=== PATIENT | male | born 1955 | race Caucasian/White ===

== ENCOUNTER 2016-11-21 09:23 | Emergency (ER) | payer OTHER ==
[~2016-11-21] VITALS: Ht 182.9 cm; Wt 110.2 kg
[~2016-11-21 09:23] MED LIST: ADVIN25/60 INH; ALBUAER2 INH; OXYC-57 PO
[2016-11-21 09:30] VITALS: Ht 182.9 cm; Wt 110.2 kg
[2016-11-21] MEDS ORDERED: MoRPHine SULFATE 4 MG/ML 1 ML CARP\\VIAL IV STA (09:49)
[2016-11-21] MEDS ORDERED: IBUPROFEN 200 MG TAB PO STA (09:49)
[2016-11-21] MEDS ORDERED: ACETAMINOPHEN 325 MG TAB PO STA (09:49)
[2016-11-21] MEDS: SODIUM CHLORIDE 0.9% 1000ML 1,000 ML IV SCH ×3 (10:00→12:37)
[2016-11-21 10:35] LABS: BASO % 0.2 %; BASO ABS # 0.04 K/uL (0-0.2); COMPLETE YES; EOS % 1.5 %; HEMATOCRIT 45.1 % (42-52); IG% 0.4 %; LYMPH % 8.6 %; LYMPH ABS # 1.41 K/uL (1.2-3.4); MEAN CORPUSCULAR HGB CONC 34.4 g/dl (32-36); MEAN PLATELET VOLUME 11.2 fL (7.4-10.4); MONO % 9.6 %; NEUT % 79.7 %; PLATELET COUNT 201 K/uL (130-400); RED BLOOD COUNT 4.85 M/uL (4.7-6.1); WHITE BLOOD COUNT 16.31 K/uL (4.8-10.8)
--- NOTE | 2016-11-21 10:50 | EMERGENCY ROOM VISIT NOTE ---
History Report prepared by Lorenzo: Andreina Kirby Under the Supervision of: Dr. Frank Temple M.D. First contact with patient: 09:35 Chief Complaint: TESTICULAR PAIN Stated Complaint: SWELLING TO TESTICLES/PAIN Nursing Triage Summary: pt reports started with bilat testicular pain 1 day ago now today R side is very swollen and painful reports urinary freq and urgency, " I think I have a urinary tract inf has had these sx X several weeks History of Present Illness The patient is a 61 year old white male with a past medical history of penile fracture and inguinal hernia who presents to the ED with a cc of constant bilateral testicular pain beginning yesterday. The patient states that since yesterday the right side has become increasingly swollen and painful. Positive urinary frequency, malodorous urine, decreased urine output, and urinary urgency that he has had for 2 weeks. He complains of constipation. Negative fever, chills, back pain, trauma, recent travel. He does not take any blood thinners Source of History: patient Onset: yesterday Position: other (bilateral testicles) Timing: constant Associated Symptoms: + urinary symptoms, No fevers, No chills, No back pain Note: Positive constipation. Review of Systems See HPI for pertinent positives and negatives. A total of ten systems were reviewed and were otherwise negative. Past Medical & Surgical Medical Problems: (1) History of repair of inguinal hernia (2) No Known Active Medical Problems Family History No pertinent family history stated. Social History Smoking Status: Never Smoker Smokeless Tobacco Use: No Alcohol Use: occasionally Drug Use: none Marital Status: Housing Status: lives with family Occupation Status: employed Current/Historical Medications Scheduled Ciprofloxacin Hcl (Cipro), 1 TAB PO BID Scheduled PRN Tramadol (Ultram), 1 TAB PO BID PRN for Pain Allergies Coded Allergies: BEE STING (Unverified Allergy, Unknown, SWELLING, 11/21/16) Rofecoxib (Unverified Allergy, Unknown, RASH, 11/21/16) Physical Exam Vital Signs Date Time Temp Pulse Resp B/P (MAP) Pulse Ox O2 Delivery O2 Flow Rate FiO2 11/21/16 12:45 36.7 86 18 118/67 96 11/21/16 11:40 86 18 118/67 11/21/16 09:30 36.7 94 20 109/79 96 Room Air Physical Exam GENERAL: Awake, alert, well-appearing, mild discomfort HENT: Normocephalic, atraumatic. EYES: Normal conjunctiva. Sclera non-icteric. NECK: Supple. No nuchal rigidity. FROM. RESPIRATORY: CTAB, no rhonchi, wheezing, crackles CARDIAC: RRR, no MRG ABDOMEN: Soft, NTND, BS+ MSK: No chest wall TTP, no LE edema NEURO: GCS 15, CN 2-12 intact, moves all 4s on command SKIN: No rash or jaundice noted. : No penile pain, no discharge, mild left testicular tenderness to palpation, right side of scrotum enlarged tender to palpation, mild erythema no tenderness to palpation. No posterior scrotum or perineal tenderness to palpation or fluctuance. Medical Decision & Procedures ER Provider Diagnostic Interpretation: Radiology results as stated below per my review and radiologist interpretation: TESTICULAR ULTRASOUND FINDINGS: Right testis: 4.9 x 5.6 x 3.6 cm. The testis is asymmetrically enlarged in comparison to the left. The testis is heterogeneous and demonstrates marked increased color flow. There is also increased color flow within the body/tail of the epididymis. Therefore, this likely represents an epididymoorchitis. There is a 6 mm cyst within the epididymal head. Trace hydrocele. No definite masses identified. Left testis: 4.1 x 2.1 x 2.7 cm. This testis appears heterogeneous/atrophic. No definite masses. Increased color flow within the heterogeneous tail of the epididymis. Trace hydrocele. IMPRESSION: 1. Marked increased flow flow within the right testis which is enlarged in comparison to the left and heterogeneous. There is also thickening and increased color flow within the body/tail of the right epididymis. Therefore, this is consistent with an epididymoorchitis. 2. There is mild thickening and increased color flow within the tail of the left epididymis suggestive of an epididymitis. 3. Trace bilateral hydroceles. 4. The left testis appears atrophic in comparison to the right. 5. Both testes are heterogeneous. Electronically signed by: Arnulfo Ching M.D. 11/21/2016 11:36 AM Dictated Date/Time: 11/21/2016 11:32 AM Laboratory Results 11/21/16 10:24 Red Blood Count 4.85, Mean Corpuscular Volume 93.0, Mean Corpuscular Hemoglobin 32.0, Mean Corpuscular Hemoglobin Concent 34.4, Mean Platelet Volume 11.2, Neutrophils (%) (Auto) 79.7, Lymphocytes (%) (Auto) 8.6, Monocytes (%) (Auto) 9.6, Eosinophils (%) (Auto) 1.5, Basophils (%) (Auto) 0.2, Neutrophils # (Auto) 12.99, Lymphocytes # (Auto) 1.41, Monocytes # (Auto) 1.56, Eosinophils # (Auto) 0.25, Basophils # (Auto) 0.04 11/21/16 10:24 Test 11/21/16 10:24 11/21/16 11:30 White Blood Count 16.31 K/uL (4.8-10.8) Red Blood Count 4.85 M/uL (4.7-6.1) Hemoglobin 15.5 g/dL (14.0-18.0) Hematocrit 45.1 % (42-52) Mean Corpuscular Volume 93.0 fL (80-100) Mean Corpuscular Hemoglobin 32.0 pg (25-34) Mean Corpuscular Hemoglobin Concent 34.4 g/dl (32-36) Platelet Count 201 K/uL (130-400) Mean Platelet Volume 11.2 fL (7.4-10.4) Neutrophils (%) (Auto) 79.7 % Lymphocytes (%) (Auto) 8.6 % Monocytes (%) (Auto) 9.6 % Eosinophils (%) (Auto) 1.5 % Basophils (%) (Auto) 0.2 % Neutrophils # (Auto) 12.99 K/uL (1.4-6.5) Lymphocytes # (Auto) 1.41 K/uL (1.2-3.4) Monocytes # (Auto) 1.56 K/uL (0.11-0.59) Eosinophils # (Auto) 0.25 K/uL (0-0.5) Basophils # (Auto) 0.04 K/uL (0-0.2) RDW Standard Deviation 43.1 fL (36.4-46.3) RDW Coefficient of Variation 12.6 % (11.5-14.5) Immature Granulocyte % (Auto) 0.4 % Immature Granulocyte # (Auto) 0.06 K/uL (0.00-0.02) Anion Gap 5.0 mmol/L (3-11) Est Creatinine Clear Calc Drug Dose 102.0 ml/min Estimated GFR () 95.1 Estimated GFR (Non- 82.0 BUN/Creatinine Ratio 13.9 (10-20) Calcium Level 9.2 mg/dl (8.5-10.1) Total Creatine Kinase 58 U/L (39-308) Urine Color DK YELLOW Urine Appearance CLOUDY (CLEAR) Urine pH 5.5 (4.5-7.5) Urine Specific [place] 1.025 (1.000-1.030) Urine Protein 1+ (NEG) Urine Glucose (UA) NEG (NEG) Urine Ketones NEG (NEG) Urine Occult Blood 1+ (NEG) Urine Nitrite NEG (NEG) Urine Bilirubin NEG (NEG) Urine Urobilinogen NEG (NEG) Urine Leukocyte Esterase MODERATE (NEG) Urine WBC (Auto) >30 /hpf (0-5) Urine RBC (Auto) 5-10 /hpf (0-4) Urine Hyaline Casts (Auto) >30 /lpf (0-5) Urine Epithelial Cells (Auto) 0-5 /lpf (0-5) Urine Bacteria (Auto) 1+ (NEG) Urine Pathogenic Casts 1-5 WBC CASTS /lpf (0) Laboratory results reviewed by me Medications Administered Medications (Trade) Dose Ordered Sig/Lucas Route Start Time Stop Time Status Last Admin Dose Admin Morphine Sulfate (MoRPHine SULFATE INJ) 4 mg NOW STAT IV 11/21/16 09:49 11/21/16 09:53 DC 11/21/16 09:49 4 MG Ibuprofen (Advil Tab) 400 mg NOW STAT PO 11/21/16 09:49 11/21/16 09:53 DC 11/21/16 10:32 200 MG Acetaminophen (Tylenol Tab) 650 mg NOW STAT PO 11/21/16 09:49 11/21/16 09:53 DC 11/21/16 10:31 650 MG Sodium Chloride 1,000 ml @ 999 mls/hr Q1H1M IV 11/21/16 10:00 11/21/16 13:13 DC 11/21/16 12:37 999 MLS/HR Ciprofloxacin (Cipro Tab) 500 mg NOW STAT PO 11/21/16 12:21 11/21/16 12:23 DC 11/21/16 12:37 500 MG Acetaminophen/ Hydrocodone Bitart ([place] 5/325 Tab) 1 tab ONE STAT PO 11/21/16 12:21 11/21/16 12:23 DC 11/21/16 12:38 1 TAB ED Course 0935: The patient was evaluated in room B2. A complete history and physical exam was performed. 1240: I reevaluated and updated the patient on his results. 1251: I reevaluated the patient. Discussed results and discharge instructions: He verbalized understanding and agreement. The patient is ready for discharge. Medical Decision Differential diagnosis includes orchitis, UTI, epididymitis, STI, hydrocele, torsion. The patient is a 61 year old white male with a past medical history of penile fracture and inguinal hernia who presents to the ED with a cc of constant bilateral testicular pain beginning yesterday. Patient did have a mild white count of 16, normal kidney function and a negative UA for infection. Patient's ultrasound was completed which did show a likely orchitis and epididymitis with her trace hydrocele. Patient was given ciprofloxacin as well as additional pain medication. Patient was told informed of all findings. She was told return if he has any worsening or persistent symptoms not amenable to at-home treatment. Patient was given strict follow-up , to start comfortable cautions. Patient agreed with plan of care was discharged home. Medication Reconcilliation Current Medication List: was personally reviewed by me Blood Pressure Screening Patient's blood pressure: Normal blood pressure Blood pressure disposition: Did not require urgent referral Impression Primary Impression: Epididymitis Additional Impressions: Orchitis Hydrocele Scribe Attestation The scribe's documentation has been prepared under my direction and personally reviewed by me in its entirety. I confirm that the note above accurately reflects all work, treatment, procedures, and medical decision making performed by me. Departure Information Dispostion Home / Self-Care Prescriptions Ciprofloxacin Hcl (CIPRO) 500 Mg Tab 1 TAB PO BID for 7 Days, #14 TAB Prov: Frank Temple M.D. 11/21/16 Tramadol (Ultram) 50 Mg Tab 1 TAB PO BID Y for Pain for 30 Days, #30 TAB Prov: Frank Temple M.D. 11/21/16 Referrals Rene Sosa, D.O. (PCP) Forms HOME CARE DOCUMENTATION FORM, IMPORTANT VISIT INFORMATION, WORK / SCHOOL INSTRUCTIONS Patient Instructions Epididymitis Orchitis, My [facility] Additional Instructions Please take her medications as prescribed. If you worsening or persistent symptoms please return to the emergency department or call your primary care physician's office. Please continue to apply ice as you able and elevate the scrotum to help relieve pain. Please continue take the full course of her antibiotics even if you feel better. He may take Tylenol up to 1000 mg every 6 hours and Motrin 800 mg every 6 hours as needed for pain. Problem Qualifiers
[2016-11-21 10:53] LABS: BUN/CREATININE RATIO 13.9 (10-20); CALCIUM 9.2 mg/dl (8.5-10.1); POTASSIUM 4.2 mmol/L (3.5-5.1)
--- NOTE | 2016-11-21 11:37 | DIAGNOSTIC IMAGING REPORT ---
TESTICULAR ULTRASOUND HISTORY: bilateral testicular pain, R>L w/ significant R sided TTP COMPARISON: None. FINDINGS: Right testis: 4.9 x 5.6 x 3.6 cm. The testis is asymmetrically enlarged in comparison to the left. The testis is heterogeneous and demonstrates marked increased color flow. There is also increased color flow within the body/tail of the epididymis. Therefore, this likely represents an epididymoorchitis. There is a 6 mm cyst within the epididymal head. Trace hydrocele. No definite masses identified. Left testis: 4.1 x 2.1 x 2.7 cm. This testis appears heterogeneous/atrophic. No definite masses. Increased color flow within the heterogeneous tail of the epididymis. Trace hydrocele. IMPRESSION: 1. Marked increased flow flow within the right testis which is enlarged in comparison to the left and heterogeneous. There is also thickening and increased color flow within the body/tail of the right epididymis. Therefore, this is consistent with an epididymoorchitis. 2. There is mild thickening and increased color flow within the tail of the left epididymis suggestive of an epididymitis. 3. Trace bilateral hydroceles. 4. The left testis appears atrophic in comparison to the right. 5. Both testes are heterogeneous. Electronically signed by: Arnulfo Ching M.D. 11/21/2016 11:36 AM Dictated Date/Time: 11/21/2016 11:32 AM
[2016-11-21 11:53] LABS: URINE APPEARANCE CLOUDY (CLEAR); URINE BILIRUBIN NEG (NEG); URINE COLOR DK YELLOW; URINE EPITHELIAL CELL AUTO 0-5 /lpf (0-5); URINE NITRITE NEG (NEG); URINE PH 5.5 (4.5-7.5); URINE SPECIFIC GRAVITY 1.025 (1.000-1.030); UROBILINOGEN NEG (NEG); ZZUR CULT IF INDIC CLEAN CATCH YES
[2016-11-21 11:58] LABS: MANUAL MICROSCOPIC REQUIRED? NO; REVIEW REQ? YES
[2016-11-21 12:07] LABS: URINE PATH CASTS 1-5 WBC CASTS /lpf (0)
[2016-11-21] MEDS ORDERED: HYDROCODONE/ACETAMOPHEN 5/325MG TAB PO STA (12:21)
[2016-11-21] MEDS ORDERED: CIPROFLOXACIN 500 MG TAB PO STA (12:21)
[2016-11-21] MEDS ORDERED: CIPR-255 PO (12:31)
[2016-11-21] MEDS ORDERED: TRAM-10 PO (12:31)
[2016-11-21 12:45] VITALS: BP 118/67; PULSE 86; TEMP 36.7; O2SAT 96
[2016-11-24] MEDS ORDERED: ERTA1INJ IV (22:36)
[2016-11-25] MEDS ORDERED: FLM4 PO (17:03)
[2016-11-25] MEDS ORDERED: HYDR-3419 PO (17:03)
== END 2016-11-21 12:46 | disposition home or self-care (01) ==
LOC: C.EDB 09:25
DX: N45.1 Epididymitis (principal); N45.2 Orchitis; N43.3 Hydrocele, unspecified

== ENCOUNTER 2016-11-23 09:35 | Inpatient (IN) | payer OTHER ==
[~2016-11-23] VITALS: Ht 182.9 cm; Wt 110.9 kg
[~2016-11-23 09:35] MED LIST changes: -ADVIN25/60 INH; -ALBUAER2 INH; +CIPR-255 PO; -OXYC-57 PO; +TRAM-10 PO
[2016-11-23] MEDS ORDERED: PIPERACILLIN/TAZOBACTAM 4.5 GM/100ML D5W IV STA (10:07)
[2016-11-23] MEDS ORDERED: SODIUM CHLORIDE 0.9% 1000ML 2,000 ML IV STA (10:07)
[2016-11-23] MEDS ORDERED: CIPR-255 PO (10:12)
[2016-11-23] MEDS ORDERED: IBUP-1050 PO (10:12)
[2016-11-23] MEDS ORDERED: TRAM-10 PO (10:12)
--- NOTE | 2016-11-23 10:33 | DIAGNOSTIC IMAGING REPORT ---
CHEST ONE VIEW PORTABLE CLINICAL HISTORY: Fever. COMPARISON STUDY: Chest CT March 27, 2015. FINDINGS: Lung volumes are normal. There is no pneumothorax or pleural effusion. Pulmonary vascularity is normal. No consolidation is identified. Cardiomediastinal silhouette is normal. IMPRESSION: No acute cardiopulmonary findings. Electronically signed by: Jaylen Coronel M.D. 11/23/2016 10:31 AM Dictated Date/Time: 11/23/2016 10:31 AM
[2016-11-23 10:40] LABS: URINE APPEARANCE CLOUDY (CLEAR); URINE BILIRUBIN NEG (NEG); URINE COLOR YELLOW; URINE NITRITE NEG (NEG); URINE SPECIFIC GRAVITY 1.015 (1.000-1.030); UROBILINOGEN NEG (NEG); ZZUR CULT IF INDIC CLEAN CATCH YES
[2016-11-23 10:41] LABS: MANUAL MICROSCOPIC REQUIRED? NO; REVIEW REQ? NO
[2016-11-23 11:36] LABS: BASO % 0.5 %; BASO ABS # 0.03 K/uL (0-0.2); COMPLETE YES; EOS % 6.5 %; HEMATOCRIT 44.6 % (42-52); IG% 0.5 %; LYMPH % 18.8 %; LYMPH ABS # 1.06 K/uL (1.2-3.4); MEAN CELL VOLUME 93.1 fL (80-100); MEAN CORPUSCULAR HEMOGLOBIN 32.2 pg (25-34); MEAN CORPUSCULAR HGB CONC 34.5 g/dl (32-36); MEAN PLATELET VOLUME 11.5 fL (7.4-10.4); MONO % 13.6 %; NEUT % 60.1 %; PLATELET COUNT 212 K/uL (130-400); RED BLOOD COUNT 4.79 M/uL (4.7-6.1); WHITE BLOOD COUNT 5.65 K/uL (4.8-10.8)
[2016-11-23 11:44] LABS: PROTHROMBIN TIME (PATIENT) 11.1 SECONDS (9.0-12.0)
[2016-11-23 11:54] LABS: BLOOD UREA NITROGEN 10 mg/dl (7-18); CALCIUM 8.5 mg/dl (8.5-10.1); CARBON DIOXIDE 29 mmol/L (21-32); CHLORIDE 102 mmol/L (98-107); CREATININE 0.87 mg/dl (0.60-1.40); GLUCOSE 89 mg/dl (70-99); MAGNESIUM 2.4 mg/dl (1.8-2.4); POTASSIUM 3.9 mmol/L (3.5-5.1); SODIUM 137 mmol/L (136-145)
--- NOTE | 2016-11-23 11:58 | DIAGNOSTIC IMAGING REPORT ---
EXAMINATION: RENAL ULTRASOUND CLINICAL HISTORY: Right flank pain. Urinary tract infection. COMPARISON STUDY: CT scan dated 07/21/2015 FINDINGS: The right kidney measures 11.4 cm. The left kidney measures 11.8 cm. There is no evidence of hydronephrosis. There is a probable 1 cm lower pole left renal calculus. There is a left mid pole renal scar. No bladder abnormalities are visualized. Bilateral ureteral jets were visualized. IMPRESSION : 1. No evidence of hydronephrosis 2. 1 cm lower pole left renal calculus 3. No perinephric fluid collections identified Electronically signed by: Tc Temple M.D. 11/23/2016 11:56 AM Dictated Date/Time: 11/23/2016 11:55 AM
[2016-11-23 12:00] LABS: ALKALINE PHOSPHATASE 78 U/L (45-117); ALT/SGPT 33 U/L (12-78); AST/SGOT 24 U/L (15-37); CKMB/CK RATIO 2.4 (0-3.0)
[2016-11-23 12:23] LABS: ISTAT CREATININE 0.9 mg/dl (0.6-1.3); ISTAT HEMOGLOBIN 15.6 g/dl (14.0-18.0); ISTAT IONIZED CALCIUM 1.15 mmol/l (1.12-1.32)
[2016-11-23 13:38] VITALS: O2SAT 97; Ht 182.9 cm; Wt 110.9 kg
--- NOTE | 2016-11-23 14:16 | History and Physical ---
History & Physical Date & Time of Service: Nov 23, 2016 at 14:03 Chief Complaint: Swollen Testicles-Sent By Office Primary Care Physician: Rene Sosa D.O. History of Present Illness This is a 61-year-old male who was originally presented to the the emergency room on Tuesday11/21/2016 for 1 day of pain and swelling of testicle with accompanied symptoms of urinary retention. Patient had testicular ultrasound on 11/21/2016 with following findings: Marked increased flow flow within the right testis which is enlarged in comparison to the left and heterogeneous consistent with an epididymoorchitis. Urine cultures were drawn and patient given oral ciprofloxacin. Urine cultures returned today on 11/23/2016 with ESBL ecoli sensitive to amikacin, ertapenem, imipenem, nitrofurantoin, piperacillin and tazobactam (Zosyn). Patient was recalled to the in the ED on 11/23/2016. In the ED patient had renal ultrasound without acute findings and given 4.5 g of Zosyn IV. Patient seen and examined by hospitalist medicine physician. Not in acute distress. Reports that since he has been on the outpatient Ciprofloxacin therapy , he feels that has urinary stream has improved but continues to have swelling and pain particularly at right side of scrotal sac/ right testicle Past Medical/Surgical History Medical Problems: (1) History of repair of inguinal hernia Status: Resolved (2) No Known Active Medical Problems Status: Chronic Family History Patient reports no known family medical history. Social History Smoking Status: Former Smoker (quite 10 years ago) Smokeless Tobacco Use: No Alcohol Use: 12 beers in a week Drug Use: none, marijuana (reports marijuana use but not in recent weeks) Marital Status: Housing status: lives with significant other Occupational Status: employed Immunizations History of Influenza Vaccine: Unknown History of Tetanus Vaccine?: Unknown History of Pneumococcal: Unknown History of Hepatitis B Vaccine: Unknown Multi-Drug Resistant Organisms History of MDRO: No Allergies Coded Allergies: Rofecoxib (Verified Allergy, Mild, RASH, 11/23/16) BEE STING (Verified Allergy, Unknown, SWELLING, 11/23/16) Home Medications Scheduled Ciprofloxacin Hcl (Cipro), 500 MG PO BID Scheduled PRN Ibuprofen (Advil), 400-600 MG PO Q6H PRN for Pain Tramadol (Ultram), 50 MG PO BID PRN for Pain Review of Systems Constitutional: + chills, No fever, No weight loss, No weakness, No fatigue Eyes: No worsening of vision, No redness, No discharge ENT: No hearing loss, No sore throat Respiratory: No cough, No sputum, No shortness of breath, No dyspnea on exertion, No hemoptysis Cardiovascular: No chest pain, No orthopnea, No edema Abdomen: No pain, No diarrhea, No constipation Genitourinary - Male: + hematuria, + urinary hesitancy, + urinary retention, No dysuria, No urinary incontinence Neurologic: No numbness/tingling, No vertigo Psychiatric: No insomnia Endocrine: No fatigue Hematologic / Lymphatic: No swollen lymph nodes Allergic / Immunologic: No food allergies, No frequent infections Physical Exam Vital Signs Date Time Temp Pulse Resp B/P (MAP) Pulse Ox O2 Delivery O2 Flow Rate FiO2 11/23/16 13:46 75 142/89 98 Room Air 11/23/16 13:38 97 Room Air 11/23/16 11:16 71 120/92 97 Room Air 11/23/16 09:37 36.7 98 16 121/89 94 Room Air General Appearance: no apparent distress, + obese Head: normocephalic, atraumatic Eyes: normal inspection, PERRL, EOMI, sclerae normal ENT: hearing grossly normal, pharynx normal Neck: supple, no adenopathy, no JVD, trachea midline Respiratory/Chest: chest non-tender, lungs clear, normal breath sounds, no respiratory distress, no accessory muscle use Cardiovascular: regular rate, rhythm, no edema, normal peripheral pulses Abdomen/GI: normal bowel sounds, non tender, soft Genitourinary - Male: no genital lesions, no urethral discharge, + testicular tenderness (right testicle more enlarged compared to left, erythema of scrotal sac) Back: normal inspection, no CVA tenderness, no muscle spasm, normal range of motion Extremities/Musculoskelatal: normal inspection, no calf tenderness, no pedal edema Neurologic/Psych: no motor/sensory deficits, alert, normal mood/affect, oriented x 3 Skin: + rash (erythema of scrotal sac) Lymphatic: no adenopathy Diagnostics Laboratory Results Results Past 24 Hours Test 11/23/16 10:25 11/23/16 10:45 11/23/16 11:12 8/8/17 11:17 Range/Units Urine Color YELLOW Urine Appearance CLOUDY CLEAR Urine pH 6.0 4.5-7.5 Urine Specific [place] 1.015 1.000-1.030 Urine Protein NEG NEG Urine Glucose (UA) NEG NEG Urine Ketones NEG NEG Urine Occult Blood 2+ NEG Urine Nitrite NEG NEG Urine Bilirubin NEG NEG Urine Urobilinogen NEG NEG Urine Leukocyte Esterase LARGE NEG Urine WBC (Auto) >30 0-5 /hpf Urine RBC (Auto) 10-30 0-4 /hpf Urine Hyaline Casts (Auto) 1-5 0-5 /lpf Urine Epithelial Cells (Auto) 5-10 0-5 /lpf Urine Bacteria (Auto) NEG NEG White Blood Count 5.65 4.8-10.8 K/uL Red Blood Count 4.79 4.7-6.1 M/uL Hemoglobin 15.4 14.0-18.0 g/dL Hematocrit 44.6 42-52 % Mean Corpuscular Volume 93.1 80-100 fL Mean Corpuscular Hemoglobin 32.2 25-34 pg Mean Corpuscular Hemoglobin Concent 34.5 32-36 g/dl Platelet Count 212 130-400 K/uL Mean Platelet Volume 11.5 7.4-10.4 fL Neutrophils (%) (Auto) 60.1 % Lymphocytes (%) (Auto) 18.8 % Monocytes (%) (Auto) 13.6 % Eosinophils (%) (Auto) 6.5 % Basophils (%) (Auto) 0.5 % Neutrophils # (Auto) 3.39 1.4-6.5 K/uL Lymphocytes # (Auto) 1.06 1.2-3.4 K/uL Monocytes # (Auto) 0.77 0.11-0.59 K/uL Eosinophils # (Auto) 0.37 0-0.5 K/uL Basophils # (Auto) 0.03 0-0.2 K/uL RDW Standard Deviation 43.1 36.4-46.3 fL RDW Coefficient of Variation 12.7 11.5-14.5 % Immature Granulocyte % (Auto) 0.5 % Immature Granulocyte # (Auto) 0.03 0.00-0.02 K/uL Prothrombin Time 11.1 9.0-12.0 SECONDS Prothromb Time International Ratio 1.0 0.9-1.1 Sodium Level 137 136-145 mmol/L Potassium Level 3.9 3.5-5.1 mmol/L Chloride Level 102 98-107 mmol/L Carbon Dioxide Level 29 21-32 mmol/L Anion Gap 6.0 14.0 16-25 mmol/L Blood Urea Nitrogen 10 7-18 mg/dl Creatinine 0.87 0.60-1.40 mg/dl Est Creatinine Clear Calc Drug Dose 117.6 ml/min Estimated GFR () 109.5 Estimated GFR (Non- 94.5 BUN/Creatinine Ratio 11.0 10-20 Random Glucose 89 70-99 mg/dl Calcium Level 8.5 8.5-10.1 mg/dl Magnesium Level 2.4 1.8-2.4 mg/dl Total Bilirubin 0.6 0.2-1 mg/dl Direct Bilirubin 0.2 0-0.2 mg/dl Aspartate Amino Transf (AST/SGOT) 24 15-37 U/L Alanine Aminotransferase (ALT/SGPT) 33 12-78 U/L Alkaline Phosphatase 78 45-117 U/L Total Creatine Kinase 49 39-308 U/L Creatine Kinase MB 1.2 0.5-3.6 ng/ml Creatine Kinase MB Ratio 2.4 0-3.0 Troponin I < 0.015 0-0.045 ng/ml Total Protein 6.9 6.4-8.2 gm/dl Albumin 3.1 3.4-5.0 gm/dl Bedside Lactic Acid Venous 1.12 0.90-1.70 mmol/L Bedside Hemoglobin 15.6 14.0-18.0 g/dl Bedside Hematocrit 46 42-52 % Bedside Sodium 136 135-144 mEq/L Bedside Potassium 3.9 3.3-5.0 mEq/L Bedside Chloride 100 101-112 mEq/L Bedside Total CO2 27 24-31 mEq/l Bedside Blood Urea Nitrogen 10 7-18 mg/dl Bedside Creatinine 0.9 0.6-1.3 mg/dl Bedside Glucose (other) 93 70-99 mg/dl Bedside Ionized Calcium (Keisha) 1.15 1.12-1.32 mmol/l Microbiology Results 11/23/16 Blood Culture, Received Pending 11/23/16 Blood Culture, Received Pending 11/23/16 Urine Culture, Received Pending Diagnostic Radiology EXAMINATION: RENAL ULTRASOUND, performed on 11/23/2016 CLINICAL HISTORY: Right flank pain. Urinary tract infection. COMPARISON STUDY: CT scan dated 07/21/2015 FINDINGS: The right kidney measures 11.4 cm. The left kidney measures 11.8 cm. There is no evidence of hydronephrosis. There is a probable 1 cm lower pole left renal calculus. There is a left mid pole renal scar. No bladder abnormalities are visualized. Bilateral ureteral jets were visualized. IMPRESSION : 1. No evidence of hydronephrosis 2. 1 cm lower pole left renal calculus 3. No perinephric fluid collections identified Electronically signed by: Tc Temple M.D. 11/23/2016 11:56 AM Dictated Date/Time: 11/23/2016 11:55 AM TESTICULAR ULTRASOUND, performed on 11/21/2016 HISTORY: bilateral testicular pain, R>L w/ significant R sided TTP COMPARISON: None. FINDINGS: Right testis: 4.9 x 5.6 x 3.6 cm. The testis is asymmetrically enlarged in comparison to the left. The testis is heterogeneous and demonstrates marked increased color flow. There is also increased color flow within the body/tail of the epididymis. Therefore, this likely represents an epididymoorchitis. There is a 6 mm cyst within the epididymal head. Trace hydrocele. No definite masses identified. Left testis: 4.1 x 2.1 x 2.7 cm. This testis appears heterogeneous/atrophic. No definite masses. Increased color flow within the heterogeneous tail of the epididymis. Trace hydrocele. IMPRESSION: 1. Marked increased flow flow within the right testis which is enlarged in comparison to the left and heterogeneous. There is also thickening and increased color flow within the body/tail of the right epididymis. Therefore, this is consistent with an epididymoorchitis. 2. There is mild thickening and increased color flow within the tail of the left epididymis suggestive of an epididymitis. 3. Trace bilateral hydroceles. 4. The left testis appears atrophic in comparison to the right. 5. Both testes are heterogeneous. Electronically signed by: Arnulfo Ching M.D. 11/21/2016 11:36 AM Dictated Date/Time: 11/21/2016 11:32 AM CXR normal Normal EKG Impression Assessment and Plan 61-year-old male diagnosed with epididymoorchitis on 11/21/2016 and subsequent urine cultures from 11/21/2016 found to be growing ESBL ecoli sensitive to amikacin, ertapenem, imipenem, nitrofurantoin, piperacillin and tazobactam ( Zosyn). Since being recalled to the ED for IV antibiotic treatment, patient had been empirically treated with oral ciprofloxacin with mild improvements of symptoms with improvement in urinary stream has improved but continues to have swelling and pain particularly at right side of scrotal sac/ right testicle. Patient had negative renal ultrasound and started on Zosyn in the ED 4.5 gram IV x 1. Patient seen and examined by hospitalist medicine provider and admitted to medicine service. ESBL UTI -contact precautions for ESBL -received Zosy 4.5 gram IV x 1 in the ED -scheduled Ertapenem 1 gram IV for this evening -awaiting ID consult recommendation on antibiotics course and duration Epididymoorchitis -likely caused by ESBL infection -screen for gonorrhea and chlamydia -screen for HIV -repeat testicular ultrasound ordered to rule out testicular torsion or other complications from infection which requires surgical evaluation, awaiting urology service recommendations DVT prophylaxis -Lovenox 40 mg daily Smoking Cessation counseling Level of Care Med/Surg Advanced Directives Existing Advance Directive: No Existing Living Will: No Existing Power of Interpretative Dancer: No Existing Health Care Proxy: No (patient reports that his Barb is his spouse and health care decision maker) VTE Prophylaxis VTE Risk Assessment Done? Y/N: Yes Risk Level: Moderate Given or contraindicated: Enoxaparin (Lovenox)SQ Social Service Consult None Apply
[2016-11-23 14:38] VITALS: BP 118/83; PULSE 69; TEMP 36.5; O2SAT 98
--- NOTE | 2016-11-23 14:59 | EMERGENCY ROOM VISIT NOTE ---
History Report prepared by Lorenzo: Cayla Carbajal Under the Supervision of: Dr. Nehemias Grullno D.O. First contact with patient: 09:52 Chief Complaint: TESTICULAR PAIN Stated Complaint: SWOLLEN TESTICLES-SENT BY OFFICE Nursing Triage Summary: Right sided testicular pain. States he was here last week for same and received ABX and was called and told to come back in for IV ABX. History of Present Illness The patient's blood cultured was reviewed this morning and the patient was found to have a antoine resistant UTI and was called back to the emergency department. The patient is a 61 year old male who presents to the Emergency Room with complaints of swollen testicles beginning 2 days ago. The patient reports having burning with urination several weeks ago and thought that he had a UTI. The patient states that 4 days ago he felt achy and 3 days ago he was in pain and decided to come to the emergency department the following day because he had swollen testicles. He reports that his testicles are still swollen and that he thinks he saw blood in his penile discharge. He also complains of having a fever and lower right back pain which began yesterday. He states that he is sexually active and that his has a history of a staph infection. Pt denies headache, change in vision, chest pain, shortness of breath, nausea, vomiting, diarrhea, and melena. Source of History: patient Onset: 2 days ago Position: other (testicles) Quality: other (swelling) Associated Symptoms: + fevers, + back pain, No headache, No chest pain, No SOB, No nausea, No vomiting, No diarrhea Review of Systems See HPI for pertinent positives & negatives. A total of 10 systems reviewed and were otherwise negative. Past Medical & Surgical Medical Problems: (1) History of repair of inguinal hernia (2) No Known Active Medical Problems Family History No pertinent family history stated. Social History Smoking Status: Former Smoker Alcohol Use: occasionally Drug Use: none Marital Status: Housing Status: lives with family Occupation Status: employed Current/Historical Medications Scheduled Ciprofloxacin Hcl (Cipro), 500 MG PO BID Scheduled PRN Ibuprofen (Advil), 400-600 MG PO Q6H PRN for Pain Tramadol (Ultram), 50 MG PO BID PRN for Pain Allergies Coded Allergies: Rofecoxib (Verified Allergy, Mild, RASH, 11/23/16) BEE STING (Verified Allergy, Unknown, SWELLING, 11/23/16) Physical Exam Vital Signs Date Time Temp Pulse Resp B/P (MAP) Pulse Ox O2 Delivery O2 Flow Rate FiO2 11/23/16 11:16 71 120/92 97 Room Air 11/23/16 09:37 36.7 98 16 121/89 94 Room Air Physical Exam GENERAL: Sitting upright in bed, disheveled, no acute distress EYE EXAM: normal conjunctiva OROPHARYNX: no exudate, no erythema, lips, buccal mucosa, and tongue normal and mucous membranes are moist NECK: supple, no nuchal rigidity, no adenopathy, non-tender LUNGS: Clear to auscultation. Normal chest wall mechanics HEART: no murmurs, S1 normal and S2 normal ABDOMEN: abdomen soft, non-tender, normo-active bowel sounds, no masses, no rebound or guarding. BACK: Back is symmetrical on inspection and there is no deformity, no midline tenderness, no CVA tenderness. SKIN: no rashes and no bruising : Enlarged right testicle with erythema and tenderness to palpation. UPPER EXTREMITIES: upper extremities are grossly normal. LOWER EXTREMITIES: No pitting edema. NEURO EXAM: Normal sensorium, cranial nerves II-XII intact, normal speech, no weakness of arms, no weakness of legs. Medical Decision & Procedures ER Provider Diagnostic Interpretation: XRAY: A 1 view study was reviewed, no fracture was seen. CHEST ONE VIEW PORTABLE CLINICAL HISTORY: Fever. COMPARISON STUDY: Chest CT March 27, 2015. FINDINGS: Lung volumes are normal. There is no pneumothorax or pleural effusion. Pulmonary vascularity is normal. No consolidation is identified. Cardiomediastinal silhouette is normal. IMPRESSION: No acute cardiopulmonary findings. Electronically signed by: Jaylen Coronel M.D. 11/23/2016 10:31 AM Dictated Date/Time: 11/23/2016 10:31 AM Radiology results as stated below per my review and the radiologist's interpretation: EXAMINATION: RENAL ULTRASOUND CLINICAL HISTORY: Right flank pain. Urinary tract infection. COMPARISON STUDY: CT scan dated 07/21/2015 FINDINGS: The right kidney measures 11.4 cm. The left kidney measures 11.8 cm. There is no evidence of hydronephrosis. There is a probable 1 cm lower pole left renal calculus. There is a left mid pole renal scar. No bladder abnormalities are visualized. Bilateral ureteral jets were visualized. IMPRESSION : 1. No evidence of hydronephrosis 2. 1 cm lower pole left renal calculus 3. No perinephric fluid collections identified Electronically signed by: Tc Temple M.D. 11/23/2016 11:56 AM Dictated Date/Time: 11/23/2016 11:55 AM Laboratory Results 11/23/16 10:45 Red Blood Count 4.79, Mean Corpuscular Volume 93.1, Mean Corpuscular Hemoglobin 32.2, Mean Corpuscular Hemoglobin Concent 34.5, Mean Platelet Volume 11.5, Neutrophils (%) (Auto) 60.1, Lymphocytes (%) (Auto) 18.8, Monocytes (%) (Auto) 13.6, Eosinophils (%) (Auto) 6.5, Basophils (%) (Auto) 0.5, Neutrophils # (Auto ) 3.39, Lymphocytes # (Auto) 1.06, Monocytes # (Auto) 0.77, Eosinophils # (Auto ) 0.37, Basophils # (Auto) 0.03 11/23/16 10:45 Test 11/23/16 10:25 11/23/16 10:45 11/23/16 11:12 11/23/16 11:17 Urine Color YELLOW Urine Appearance CLOUDY (CLEAR) Urine pH 6.0 (4.5-7.5) Urine Specific Mcdavid 1.015 (1.000-1.030) Urine Protein NEG (NEG) Urine Glucose (UA) NEG (NEG) Urine Ketones NEG (NEG) Urine Occult Blood 2+ (NEG) Urine Nitrite NEG (NEG) Urine Bilirubin NEG (NEG) Urine Urobilinogen NEG (NEG) Urine Leukocyte Esterase LARGE (NEG) Urine WBC (Auto) >30 /hpf (0-5) Urine RBC (Auto) 10-30 /hpf (0-4) Urine Hyaline Casts (Auto) 1-5 /lpf (0-5) Urine Epithelial Cells (Auto) 5-10 /lpf (0-5) Urine Bacteria (Auto) NEG (NEG) White Blood Count 5.65 K/uL (4.8-10.8) Red Blood Count 4.79 M/uL (4.7-6.1) Hemoglobin 15.4 g/dL (14.0-18.0) Hematocrit 44.6 % (42-52) Mean Corpuscular Volume 93.1 fL (80-100) Mean Corpuscular Hemoglobin 32.2 pg (25-34) Mean Corpuscular Hemoglobin Concent 34.5 g/dl (32-36) Platelet Count 212 K/uL (130-400) Mean Platelet Volume 11.5 fL (7.4-10.4) Neutrophils (%) (Auto) 60.1 % Lymphocytes (%) (Auto) 18.8 % Monocytes (%) (Auto) 13.6 % Eosinophils (%) (Auto) 6.5 % Basophils (%) (Auto) 0.5 % Neutrophils # (Auto) 3.39 K/uL (1.4-6.5) Lymphocytes # (Auto) 1.06 K/uL (1.2-3.4) Monocytes # (Auto) 0.77 K/uL (0.11-0.59) Eosinophils # (Auto) 0.37 K/uL (0-0.5) Basophils # (Auto) 0.03 K/uL (0-0.2) RDW Standard Deviation 43.1 fL (36.4-46.3) RDW Coefficient of Variation 12.7 % (11.5-14.5) Immature Granulocyte % (Auto) 0.5 % Immature Granulocyte # (Auto) 0.03 K/uL (0.00-0.02) Prothrombin Time 11.1 SECONDS (9.0-12.0) Prothromb Time International Ratio 1.0 (0.9-1.1) Est Creatinine Clear Calc Drug Dose 117.6 ml/min Estimated GFR () 109.5 Estimated GFR (Non- 94.5 BUN/Creatinine Ratio 11.0 (10-20) Calcium Level 8.5 mg/dl (8.5-10.1) Magnesium Level 2.4 mg/dl (1.8-2.4) Total Bilirubin 0.6 mg/dl (0.2-1) Direct Bilirubin 0.2 mg/dl (0-0.2) Aspartate Amino Transf (AST/SGOT) 24 U/L (15-37) Alanine Aminotransferase (ALT/SGPT) 33 U/L (12-78) Alkaline Phosphatase 78 U/L (45-117) Total Creatine Kinase 49 U/L (39-308) Creatine Kinase MB 1.2 ng/ml (0.5-3.6) Creatine Kinase MB Ratio 2.4 (0-3.0) Troponin I < 0.015 ng/ml (0-0.045) Total Protein 6.9 gm/dl (6.4-8.2) Albumin 3.1 gm/dl (3.4-5.0) Bedside Lactic Acid Venous 1.12 mmol/L (0.90-1.70) Bedside Hemoglobin 15.6 g/dl (14.0-18.0) Bedside Hematocrit 46 % (42-52) Bedside Sodium 136 mEq/L (135-144) Bedside Potassium 3.9 mEq/L (3.3-5.0) Bedside Chloride 100 mEq/L (101-112) Bedside Total CO2 27 mEq/l (24-31) Anion Gap 14.0 mmol/L (16-25) Bedside Blood Urea Nitrogen 10 mg/dl (7-18) Bedside Creatinine 0.9 mg/dl (0.6-1.3) Bedside Glucose (other) 93 mg/dl (70-99) Bedside Ionized Calcium (Keisha) 1.15 mmol/l (1.12-1.32) Laboratory results per my review. Medications Administered Medications (Trade) Dose Ordered Sig/Lucas Route Start Time Stop Time Status Last Admin Dose Admin Piperacillin Sod/ Tazobactam Sod (Zosyn Iv) 4.5 gm NOW STAT IV 11/23/16 10:07 11/23/16 10:09 DC 11/23/16 11:33 4.5 GM Sodium Chloride 2,000 ml @ 999 mls/hr Q2H1M STAT IV 11/23/16 10:07 11/23/16 12:07 DC 11/23/16 11:33 999 MLS/HR ECG Indication: other (swollen testicles ) Rate (beats per minute): 76 Rhythm: sinus rhythm Findings: no ectopy, other (normal axis) ED Course ED COURSE: Vital signs were reviewed and showed hypertension and tachycardia. The patients medical record was reviewed The above diagnostic studies were performed and reviewed. ED treatments and interventions as stated above. 1005: The patient was evaluated in room B12. A complete history and physical examination was performed. 1007: Ordered Sodium Chloride 2,000 ml @ 999 mls/hr IV, Zosyn Iv 4.5 gm IV. 1314: Upon reevaluation, the patient is resting. I discussed the findings and the treatment plan with the patient. He expresses agreement and understanding. I spoke with Dr. Figueroa. He will be evaluated for further management. Medical Decision Differential diagnoses includes but is not limited to gastritis, peptic ulcer disease, GERD, gallbladder disease, pancreatitis, small bowel obstruction, acute coronary syndrome, pericarditis, ischemic bowel, irritable bowel disease, irritable bowel syndrome, appendicitis, diverticulitis, malignancy, hernia, urinary tract infection, torsion, [/ectopic (if female)], perforation, trauma, infectious. Patient is a 61-year-old male who has had 2 weeks worth of dysuria, urgency and frequency. He missed being sexually active with his only. He presented here several days ago and was discharged following a UTI on Cipro. Cultures resulted today and showed pain resistance. He did have a leukocytosis of 16, 000. He was called and had no improvement of his symptoms. He now has mild right flank tenderness. With his UTI/orchitis/epididymitis I do believe with flank pain it is progressing to pyelonephritis. Patient has been having sweats and chills at home. He is given IV Zosyn. He was admitted to internal medicine following 2 IVs been established by IV team. Medication Reconcilliation Current Medication List: was personally reviewed by me Blood Pressure Screening Patient's blood pressure: Elevated blood pressure Consults Time Called: 1230 Consulting Physician: Dr. Figueroa Returned Call: [phone]: Upon reevaluation, the patient is resting. I discussed the findings and the treatment plan with the patient. He expresses agreement and understanding. I spoke with Dr. Figueroa. He will be evaluated for further management. Impression Primary Impression: Pyelonephritis Additional Impressions: Orchitis Epididymitis Scribe Attestation The scribe's documentation has been prepared under my direction and personally reviewed by me in its entirety. I confirm that the note above accurately reflects all work, treatment, procedures, and medical decision making performed by me. Departure Information Dispostion Being Evaluated By Hospitalist Referrals Rene Sosa D.O. (PCP) Patient Instructions My [facility] Problem Qualifiers
--- NOTE | 2016-11-23 15:12 | Progress Note ---
Progress Note Date of Service Nov 23, 2016. Progress Note ID Consult Dictated #[id number] A/P: 1. Uti - ESBL E.coli -Continue Ertapenem -Urology eval pending -Will need min 14 days, will need picc line, follow blood cultures -Will follow, thank you
--- NOTE | 2016-11-23 15:51 | INFECT. DISEASE CONSULTATION ---
DATE OF CONSULTATION: 11/23/2016 DATE OF CONSULTATION: 11/23/2016 REQUESTING PHYSICIAN: Dr. Sterling. HISTORY OF PRESENT ILLNESS: This is a 61-year-old gentleman who was admitted after he was called by the Emergency Room for an ESBL E. coli that grew from recent urine culture. He initially presented to the Emergency Room on the when he noted increasing testicular pain, swelling and erythema. Urinalysis and culture were done at that time. His culture is growing ESBL E. coli with sensitivities to amikacin, ertapenem, nitrofurantoin, imipenem and Zosyn only. He was discharged on Cipro. He states on Tuesday or Tuesday, he had no significant improvement and continued to have testicular pain and swelling. He does admit to some subjective fevers and chills at home as well. He denies any difficulty with urination. He did have an ultrasound in the Emergency Room on the which showed epididymitis and also a right swollen testicle. He tolerated Cipro well did not feel significantly better. He was called today to be informed that his culture was resistant to Cipro and brought to the hospital for intravenous antibiotics. He did receive Zosyn in the Emergency Room and was admitted on IV ertapenem. He is tolerating these antibiotics well. He has been afebrile since admission. His white blood cell count is within normal limits. He denies any chest pain, cough, shortness of breath, nausea, vomiting or diarrhea. He states he has not eaten yet today but is hungry. He states he has no urinary symptoms. He has no difficulty with flow but continues with testicular pain and swelling. All remaining review of systems are reviewed and are unremarkable. PAST MEDICAL HISTORY: He has no known medical history. PAST SURGICAL HISTORY: Significant for repair of inguinal hernia. FAMILY HISTORY: Noncontributory. SOCIAL HISTORY: Significant for history of tobacco use. He drinks occasionally. He occasionally smokes marijuana. He is and lives with his . He denies any sick contacts. ALLERGIES: He has no antibiotic allergies. CURRENT MEDICATIONS: Include ertapenem and Lovenox. PHYSICAL EXAMINATION: VITAL SIGNS: He is afebrile, pulse 69, respiratory rate 18, blood pressure 118/83, oxygen saturation is 98% on room air. GENERAL: He is awake, alert and oriented x3. He is in no acute distress. HEAD, EYES, EARS, NOSE, AND THROAT: Mucous membranes are moist. Extraocular muscles are intact. HEART: Regular. LUNGS: Clear bilaterally. ABDOMEN: Soft, nontender, nondistended. There is no edema bilaterally. There is no rash. Examination of the right testicle reveals erythema, swelling and tenderness. LABORATORY STUDIES: CBC today reveals a white blood cell count of 5.6, hemoglobin 15.4 and platelets are 212. Chemistry panel reveals a sodium of 136, potassium 3.9, chloride 100, bicarbonate 27, BUN 10, creatinine 0.9, glucose is 93. LFTs are within normal limits. Urinalysis shows large leukocyte esterase, greater than 30 WBCs and no bacteria. Urine and blood cultures are pending. A renal ultrasound done in the Emergency Room shows no evidence of hydronephrosis. A chest x-ray was also done in the Emergency Room and was negative for acute disease. ASSESSMENT AND PLAN: Urinary tract infection with likely epididymitis as he will be continued on IV ertapenem. My suspicion is that he will need a course of intravenous antibiotics based on his most recent sensitivities. Blood and urine cultures are pending. If blood cultures are negative he certainly would be a candidate for PICC line and once daily ertapenem for a minimum of 14 days. Urology evaluation is pending at this time. We will follow along with you. Thank you for this consultation.
--- NOTE | 2016-11-23 16:22 | Urology Consultation ---
History General Date of Service: Nov 23, 2016. Chief Complaint: Testicular Pain on Right Primary Care Physician: Rene Sosa D.O. Pt seen a urologist before?: No History of Present Illness Patient had 1 week of urinary issues with decreased flow and burning with urination. Has baseline urinary complaints with low stream and straining. Developed severe testicular pain which has worsen. Had Scrotal U/s showing right sided orchitis. Pain has been coming in waves and severe in nature. Found to have ESBL UTI and on broad spectrum ABx. Following with ID and Hospitalist. Has not needed urologic help in past. Incidental 1 cm stone found in renal pelvis on HOAWRD. Imaging Imaging: Ultrasound Laboratory Labs were reviewed and are within normal limits unless listed below. Labs are available in the chart and at [facility] Problem List Medical Problems: (1) Epididymitis Status: Acute (2) Epididymitis Status: Acute (3) ESBL (extended spectrum beta-lactamase) producing bacteria infection Status: Acute (4) Hydrocele Status: Acute (5) Orchitis Status: Acute (6) Orchitis Status: Acute (7) Pyelonephritis Status: Acute (8) Testicular/scrotal pain Status: Acute (9) UTI (urinary tract infection) Status: Acute Past History no pertinent history Pt had a problem w anesthesia?: No Additional Comments: Previous hernia surgery Family History Patient reports no known family medical history. no urologic family history Social History Hx Tobacco Use In Past Year?: No (QUIT 8 YRS AGO) Smoking: other Alcohol: socially Drug use: marijuana Marital status: Housing status: lives with significant other Occupation status: employed Immunizations History of Influenza Vaccine: Unknown History of Tetanus Vaccine?: Unknown History of Pneumococcal: Unknown History of Hepatitis B Vaccine: Unknown History of MDRO Yes Type of MDRO: other (ESBL) Allergies Coded Allergies: Rofecoxib (Verified Allergy, Mild, RASH, 11/23/16) BEE STING (Verified Allergy, Unknown, SWELLING, 11/23/16) Medications Home Medications: Home Meds and Scripts Medications Dose Route/Sig Max Daily Dose Days Date Category Dose Instructions Advil (Ibuprofen) 200 Mg Tab 400-600 Mg PO Q6H PRN 11/23/16 Reported Ultram (Tramadol HCl) 50 Mg Tab 50 Mg PO BID PRN 11/23/16 Reported Cipro (Ciprofloxacin Hcl) 500 Mg Tab 500 Mg PO BID 11/23/16 Reported started 11/21/16 for 7 day therapy Inpatient Medications: Current Inpatient Medications Medications (Trade) Dose Ordered Sig/Lucas Route Start Time Stop Time Status Last Admin Dose Admin Enoxaparin Sodium (Lovenox Inj) 40 mg HS SQ 11/23/16 21:00 12/23/16 20:59 Ertapenem 1 gm/ Sodium Chloride 50 ml @ 120 mls/hr Q24H IV 11/23/16 15:00 12/03/16 19:59 Review of Systems Review of Systems All Other Systems: Reviewed and Negative Physical Exam Vital Signs: Vital Signs Past 12 Hours Date Time Temp Pulse Resp B/P (MAP) Pulse Ox O2 Delivery O2 Flow Rate FiO2 11/23/16 14:38 36.5 69 18 118/83 (95) 98 Room Air 11/23/16 13:46 75 142/89 98 Room Air 11/23/16 13:38 97 Room Air 11/23/16 11:16 71 120/92 97 Room Air 11/23/16 09:37 36.7 98 16 121/89 94 Room Air Physical Exam: General Appearance: WD/WN, no apparent distress Eyes: bilateral eyes normal inspection, bilateral eyes PERRL, bilateral eyes EOMI ENT: normal ENT inspection, hearing grossly normal, TMs normal, pharynx normal Neck: supple, no adenopathy, thyroid normal, no JVD Respiratory/Chest: chest non-tender, lungs clear, normal breath sounds, no respiratory distress, no accessory muscle use Cardiovascular: regular rate, rhythm, no edema, no gallop, no JVD, no murmur Genitourinary - Male: Penis: normal penis Urethral Meatus: normal urethral meatus Testes: tenderness (Right), size (enlarged right) Epididymides: enlarged (right), indurated Scrotum: normal scrotum Extremities: normal range of motion, non-tender, normal inspection, no pedal edema, no calf tenderness, normal capillary refill Neurologic/Psychiatric: flat knitter helper II-XII nml as tested, no motor/sensory deficits, alert, normal mood/affect, oriented x 3 Skin: normal color, warm/dry, no rash Lymphatic: no adenopathy Assessment & Plan Assessment & Plan (1) Epididymitis Status: Acute (2) Orchitis Status: Acute (3) ESBL (extended spectrum beta-lactamase) producing bacteria infection Status: Acute (4) UTI (urinary tract infection) Status: Acute (5) Stone, kidney Patient likely with baseline LUTS and complicated UTI, developed into Epididymoorchitis with ESBL species. Patient following with ID. Agree with plan for IV Abx with 2 week course and close monitoring for resolution. Discussed trial of flomax for urinary issues with complicated UTI. Will likely need cystoscopy and work up as outpatient once infection is cleared. Patient found to have stone on HOWARD and due to size (1 cm) will likely need to have stone treatment in future. Will need to discuss in future. Will monitor and follow for improvement of symptoms. Recommend pain symptom control with NSAID and pain medication, Scrotal elevation and support, and ice to groin (20 min on and 20 min off). Thank you for consultation.
--- NOTE | 2016-11-23 16:35 | DIAGNOSTIC IMAGING REPORT ---
(TESTICULAR) SCROTUM-CONT HISTORY: Pain testicular pain COMPARISON: 11/21/2016 FINDINGS: Right testis: Persistent moderate enlargement compared to the left testis. Maximum dimension 5.9 cm slightly increased from the prior exam. Heterogeneous internal architecture unchanged. Increased vascularity stable. Small epididymal cyst. Small hydrocele. Left testis: Somewhat atrophic with a maximum dimension of 4.1 cm. Heterogeneous internal architecture. Vascular flow is confirmed. IMPRESSION: 1. Unchanged findings of epididymoorchitis of the right testis/epididymis. 2. Atrophic heterogeneous appearance to the left testis also unchanged. 3. Flow to both testis is confirmed. 4. No change compared to the prior study. The above report was generated using voice recognition software. It may contain grammatical, syntax or spelling errors. Electronically signed by: Shayne Smith M.D. 11/23/2016 4:33 PM Dictated Date/Time: 11/23/2016 4:31 PM
[2016-11-23] MEDS ORDERED: HYDROmorphone INJ 1 MG/ML SYR IV PRN (16:45)
[2016-11-23] MEDS ORDERED: ACETAMINOPHEN 500 MG TAB PO PRN (16:45)
[2016-11-23 17:07] VITALS: O2SAT 98
[2016-11-23] MEDS: ERTAPENEM IV 1 GM in SODIUM CHLOR 0.9% AD-VAN 50ML 50 ML IV SCH (17:40)
[2016-11-23] MEDS: TAMSULOSIN HCL 0.4 MG CAP PO SCH (20:59)
[2016-11-23] MEDS: ENOXAPARIN 40 MG/0.4 ML SYR SQ SCH (21:00)
[2016-11-23 23:30] VITALS: BP 127/77; PULSE 86; TEMP 36.9; O2SAT 96
[2016-11-23] MEDS: HYDROmorphone INJ 0.5 MG/0.5 ML SYR IV PRN (23:45)
[2016-11-24 07:03] VITALS: BP 109/72; PULSE 86; TEMP 36.8; O2SAT 99
[2016-11-24 07:25] LABS: BASO % 0.7 %; BASO ABS # 0.04 K/uL (0-0.2); COMPLETE YES; EOS % 7.9 %; HEMATOCRIT 44.1 % (42-52); IG% 0.7 %; LYMPH % 21.3 %; LYMPH ABS # 1.19 K/uL (1.2-3.4); MEAN CORPUSCULAR HEMOGLOBIN 32.7 pg (25-34); MEAN CORPUSCULAR HGB CONC 35.1 g/dl (32-36); MEAN PLATELET VOLUME 10.8 fL (7.4-10.4); MONO % 13.2 %; NEUT % 56.2 %; PLATELET COUNT 233 K/uL (130-400); RED BLOOD COUNT 4.74 M/uL (4.7-6.1)
[2016-11-24 07:53] LABS: BUN/CREATININE RATIO 12.5 (10-20); CALCIUM 8.7 mg/dl (8.5-10.1); CREATININE 0.99 mg/dl (0.60-1.40); POTASSIUM 4.3 mmol/L (3.5-5.1)
[2016-11-24 07:56] LABS: ALB/GLOB RATIO 0.8 (0.9-2)
--- NOTE | 2016-11-24 07:57 | Progress Note ---
Subjective Date of Service: Nov 24, 2016. Subjective Pt evaluation today including: conversation w/ patient, chart review, lab review Voiding: no voiding problems 61 yo male with right epididymitis. ESBL UTI. Currently on Ertapenem. Appreciate ID consult. The pt continues to have some pain and swelling of the scrotum this morning. Denies n/v. He remains afebrile. Reports his voiding has improved since starting Flomax. Blood and urine cultures pending. Problem List Medical Problems: (1) Epididymitis Status: Acute (2) Epididymitis Status: Acute (3) ESBL (extended spectrum beta-lactamase) producing bacteria infection Status: Acute (4) Hydrocele Status: Acute (5) Orchitis Status: Acute (6) Orchitis Status: Acute (7) Pyelonephritis Status: Acute (8) Testicular/scrotal pain Status: Acute (9) UTI (urinary tract infection) Status: Acute Review of Systems Constitutional: No fever, No chills Respiratory: No shortness of breath Cardiac: No chest pain Abdomen: No pain, No nausea, No vomiting Male : No dysuria, No slowing stream, No hematuria, No problem reported ( scrotal pain and swelling ) Heme: No abnormal bleeding/bruising Objective Vital Signs Date Time Temp Pulse Resp B/P (MAP) Pulse Ox O2 Delivery O2 Flow Rate FiO2 11/24/16 07:03 36.8 86 20 109/72 (84) 99 Room Air 11/24/16 00:12 Room Air 11/23/16 23:30 36.9 86 20 127/77 (94) 96 Room Air 11/23/16 17:07 98 Room Air 11/23/16 14:38 36.5 69 18 118/83 (95) 98 Room Air 11/23/16 13:46 75 142/89 98 Room Air 11/23/16 13:38 97 Room Air 11/23/16 11:16 71 120/92 97 Room Air 11/23/16 09:37 36.7 98 16 121/89 94 Room Air Physical Exam General Appearance: no apparent distress Eyes: normal inspection ENT: hearing grossly normal Neck: no JVD Respiratory/Chest: no respiratory distress, no accessory muscle use Cardiovascular: no JVD Extremities: normal inspection Neurologic/Psychiatric: alert, normal mood/affect, oriented x 3 Skin: normal color Comments: Right epididymis tender and swollen on exam today. Erythema of the scrotum noted as well. Laboratory Results Last 24 Hours Test 11/23/16 10:25 11/23/16 10:45 11/23/16 11:12 11/23/16 11:17 Urine Color YELLOW Urine Appearance CLOUDY Urine pH 6.0 Urine Specific [place] 1.015 Urine Protein NEG Urine Glucose (UA) NEG Urine Ketones NEG Urine Occult Blood 2+ Urine Nitrite NEG Urine Bilirubin NEG Urine Urobilinogen NEG Urine Leukocyte Esterase LARGE Urine WBC (Auto) >30 /hpf Urine RBC (Auto) 10-30 /hpf Urine Hyaline Casts (Auto) 1-5 /lpf Urine Epithelial Cells (Auto) 5-10 /lpf Urine Bacteria (Auto) NEG White Blood Count 5.65 K/uL Red Blood Count 4.79 M/uL Hemoglobin 15.4 g/dL Hematocrit 44.6 % Mean Corpuscular Volume 93.1 fL Mean Corpuscular Hemoglobin 32.2 pg Mean Corpuscular Hemoglobin Concent 34.5 g/dl Platelet Count 212 K/uL Mean Platelet Volume 11.5 fL Neutrophils (%) (Auto) 60.1 % Lymphocytes (%) (Auto) 18.8 % Monocytes (%) (Auto) 13.6 % Eosinophils (%) (Auto) 6.5 % Basophils (%) (Auto) 0.5 % Neutrophils # (Auto) 3.39 K/uL Lymphocytes # (Auto) 1.06 K/uL Monocytes # (Auto) 0.77 K/uL Eosinophils # (Auto) 0.37 K/uL Basophils # (Auto) 0.03 K/uL RDW Standard Deviation 43.1 fL RDW Coefficient of Variation 12.7 % Immature Granulocyte % (Auto) 0.5 % Immature Granulocyte # (Auto) 0.03 K/uL Prothrombin Time 11.1 SECONDS Prothromb Time International Ratio 1.0 Sodium Level 137 mmol/L Potassium Level 3.9 mmol/L Chloride Level 102 mmol/L Carbon Dioxide Level 29 mmol/L Anion Gap 6.0 mmol/L 14.0 mmol/L Blood Urea Nitrogen 10 mg/dl Creatinine 0.87 mg/dl Est Creatinine Clear Calc Drug Dose 117.6 ml/min Estimated GFR () 109.5 Estimated GFR (Non- 94.5 BUN/Creatinine Ratio 11.0 Random Glucose 89 mg/dl Calcium Level 8.5 mg/dl Magnesium Level 2.4 mg/dl Total Bilirubin 0.6 mg/dl Direct Bilirubin 0.2 mg/dl Aspartate Amino Transf (AST/SGOT) 24 U/L Alanine Aminotransferase (ALT/SGPT) 33 U/L Alkaline Phosphatase 78 U/L Total Creatine Kinase 49 U/L Creatine Kinase MB 1.2 ng/ml Creatine Kinase MB Ratio 2.4 Troponin I < 0.015 ng/ml Total Protein 6.9 gm/dl Albumin 3.1 gm/dl Bedside Lactic Acid Venous 1.12 mmol/L Bedside Hemoglobin 15.6 g/dl Bedside Hematocrit 46 % Bedside Sodium 136 mEq/L Bedside Potassium 3.9 mEq/L Bedside Chloride 100 mEq/L Bedside Total CO2 27 mEq/l Bedside Blood Urea Nitrogen 10 mg/dl Bedside Creatinine 0.9 mg/dl Bedside Glucose (other) 93 mg/dl Bedside Ionized Calcium (Keisha) 1.15 mmol/l Test 11/24/16 07:04 White Blood Count 5.60 K/uL Red Blood Count 4.74 M/uL Hemoglobin 15.5 g/dL Hematocrit 44.1 % Mean Corpuscular Volume 93.0 fL Mean Corpuscular Hemoglobin 32.7 pg Mean Corpuscular Hemoglobin Concent 35.1 g/dl Platelet Count 233 K/uL Mean Platelet Volume 10.8 fL Neutrophils (%) (Auto) 56.2 % Lymphocytes (%) (Auto) 21.3 % Monocytes (%) (Auto) 13.2 % Eosinophils (%) (Auto) 7.9 % Basophils (%) (Auto) 0.7 % Neutrophils # (Auto) 3.15 K/uL Lymphocytes # (Auto) 1.19 K/uL Monocytes # (Auto) 0.74 K/uL Eosinophils # (Auto) 0.44 K/uL Basophils # (Auto) 0.04 K/uL RDW Standard Deviation 43.4 fL RDW Coefficient of Variation 12.6 % Immature Granulocyte % (Auto) 0.7 % Immature Granulocyte # (Auto) 0.04 K/uL Assessment and Plan (1) Epididymitis (2) Orchitis (3) ESBL (extended spectrum beta-lactamase) producing bacteria infection (4) UTI (urinary tract infection) (5) Stone, kidney A/P: Right epididymitis, ESBL UTI, left renal stone, LUTS 1. Right epididymitis, ESBL UTI Continue ertapenem per ID. Appreciate consult. No plan for surgical intervention at this time. Supportive management with pain control, ice packs, and scrotal elevation. 2. LUTS Improved on Flomax. Will continue. Suspect a component of BPH. Will plan for MIKE when not in the setting of aggressive infection. The pt will likely need a cysto as an outpatient as well. Will arrange once infection has been adequately managed. Will also plan to check a PSA in the future when not in the setting of UTI. 3. Left renal stone 1cm left renal stone noted on renal u/s. The pt has no previous hx of stones. Will check a KUB. May be able to perform ESWL in the future as an outpatient. Will continue to follow along with primary service at this time. Continued [facility] stay due to: multiple IV medications needed
[2016-11-24] MEDS: HYDROmorphone INJ 0.5 MG/0.5 ML SYR IV PRN ×3 (08:06→21:08)
--- NOTE | 2016-11-24 08:51 | DIAGNOSTIC IMAGING REPORT ---
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 No additional renal calcifications. Postoperative changes to the right lower quadrant. Nonobstructive bowel pattern. IMPRESSION: 1 cm calcification mid aspect left kidney. The above report was generated using voice recognition software. It may contain grammatical, syntax or spelling errors. Electronically signed by: Shayne Smith M.D. 11/24/2016 8:50 AM Dictated Date/Time: 11/24/2016 8:49 AM
--- NOTE | 2016-11-24 10:23 | Progress Note ---
Subjective Date of Service: Nov 24, 2016. Subjective Pt evaluation today including: conversation w/ patient, physical exam, chart review, lab review pt without complaint. States testicular pain/swelling about the same. no f/c overnight. no cp, cough, n/v/d/abd pain. no gu complaints. S/p urology eval, no intervention planned currently with active infection.tolerating abx. picc placed yesterday. repeat urine culture with gnr, ID pending. ESBL E. coli from ER culture. STD w/u pending. Blood cultures pending. All remaining ros reviewed and are negative. Problem List Medical Problems: (1) Epididymitis Status: Acute (2) Epididymitis Status: Acute (3) ESBL (extended spectrum beta-lactamase) producing bacteria infection Status: Acute (4) Hydrocele Status: Acute (5) Orchitis Status: Acute (6) Orchitis Status: Acute (7) Pyelonephritis Status: Acute (8) Testicular/scrotal pain Status: Acute (9) UTI (urinary tract infection) Status: Acute Objective Vital Signs Date Time Temp Pulse Resp B/P (MAP) Pulse Ox O2 Delivery O2 Flow Rate FiO2 11/24/16 07:03 36.8 86 20 109/72 (84) 99 Room Air 11/24/16 00:12 Room Air 11/23/16 23:30 36.9 86 20 127/77 (94) 96 Room Air 11/23/16 17:07 98 Room Air 11/23/16 14:38 36.5 69 18 118/83 (95) 98 Room Air 11/23/16 13:46 75 142/89 98 Room Air 11/23/16 13:38 97 Room Air 11/23/16 11:16 71 120/92 97 Room Air Physical Exam General Appearance: WD/WN, no apparent distress Eyes: normal inspection, EOMI ENT: pharynx normal Neck: supple Respiratory/Chest: normal breath sounds, no respiratory distress Cardiovascular: regular rate, rhythm, no edema Abdomen: non tender, soft Extremities: non-tender, no pedal edema Neurologic/Psychiatric: alert, oriented x 3 Skin: normal color, warm/dry, no rash Laboratory Results Item Value Date Time Urine Culture - Final Complete 11/21/16 1130 Urine , Clean Catch Escherichia Coli Urine Culture - Preliminary Resulted 11/23/16 1025 Urine , Clean Catch Gram Negative Bacilli Last 24 Hours Test 11/23/16 10:25 11/23/16 10:45 11/23/16 11:12 11/23/16 11:17 Urine Color YELLOW Urine Appearance CLOUDY Urine pH 6.0 Urine Specific [place] 1.015 Urine Protein NEG Urine Glucose (UA) NEG Urine Ketones NEG Urine Occult Blood 2+ Urine Nitrite NEG Urine Bilirubin NEG Urine Urobilinogen NEG Urine Leukocyte Esterase LARGE Urine WBC (Auto) >30 /hpf Urine RBC (Auto) 10-30 /hpf Urine Hyaline Casts (Auto) 1-5 /lpf Urine Epithelial Cells (Auto) 5-10 /lpf Urine Bacteria (Auto) NEG White Blood Count 5.65 K/uL Red Blood Count 4.79 M/uL Hemoglobin 15.4 g/dL Hematocrit 44.6 % Mean Corpuscular Volume 93.1 fL Mean Corpuscular Hemoglobin 32.2 pg Mean Corpuscular Hemoglobin Concent 34.5 g/dl Platelet Count 212 K/uL Mean Platelet Volume 11.5 fL Neutrophils (%) (Auto) 60.1 % Lymphocytes (%) (Auto) 18.8 % Monocytes (%) (Auto) 13.6 % Eosinophils (%) (Auto) 6.5 % Basophils (%) (Auto) 0.5 % Neutrophils # (Auto) 3.39 K/uL Lymphocytes # (Auto) 1.06 K/uL Monocytes # (Auto) 0.77 K/uL Eosinophils # (Auto) 0.37 K/uL Basophils # (Auto) 0.03 K/uL RDW Standard Deviation 43.1 fL RDW Coefficient of Variation 12.7 % Immature Granulocyte % (Auto) 0.5 % Immature Granulocyte # (Auto) 0.03 K/uL Prothrombin Time 11.1 SECONDS Prothromb Time International Ratio 1.0 Sodium Level 137 mmol/L Potassium Level 3.9 mmol/L Chloride Level 102 mmol/L Carbon Dioxide Level 29 mmol/L Anion Gap 6.0 mmol/L 14.0 mmol/L Blood Urea Nitrogen 10 mg/dl Creatinine 0.87 mg/dl Est Creatinine Clear Calc Drug Dose 117.6 ml/min Estimated GFR () 109.5 Estimated GFR (Non- 94.5 BUN/Creatinine Ratio 11.0 Random Glucose 89 mg/dl Calcium Level 8.5 mg/dl Magnesium Level 2.4 mg/dl Total Bilirubin 0.6 mg/dl Direct Bilirubin 0.2 mg/dl Aspartate Amino Transf (AST/SGOT) 24 U/L Alanine Aminotransferase (ALT/SGPT) 33 U/L Alkaline Phosphatase 78 U/L Total Creatine Kinase 49 U/L Creatine Kinase MB 1.2 ng/ml Creatine Kinase MB Ratio 2.4 Troponin I < 0.015 ng/ml Total Protein 6.9 gm/dl Albumin 3.1 gm/dl Bedside Lactic Acid Venous 1.12 mmol/L Bedside Hemoglobin 15.6 g/dl Bedside Hematocrit 46 % Bedside Sodium 136 mEq/L Bedside Potassium 3.9 mEq/L Bedside Chloride 100 mEq/L Bedside Total CO2 27 mEq/l Bedside Blood Urea Nitrogen 10 mg/dl Bedside Creatinine 0.9 mg/dl Bedside Glucose (other) 93 mg/dl Bedside Ionized Calcium (Keisha) 1.15 mmol/l Test 11/24/16 07:04 White Blood Count 5.60 K/uL Red Blood Count 4.74 M/uL Hemoglobin 15.5 g/dL Hematocrit 44.1 % Mean Corpuscular Volume 93.0 fL Mean Corpuscular Hemoglobin 32.7 pg Mean Corpuscular Hemoglobin Concent 35.1 g/dl Platelet Count 233 K/uL Mean Platelet Volume 10.8 fL Neutrophils (%) (Auto) 56.2 % Lymphocytes (%) (Auto) 21.3 % Monocytes (%) (Auto) 13.2 % Eosinophils (%) (Auto) 7.9 % Basophils (%) (Auto) 0.7 % Neutrophils # (Auto) 3.15 K/uL Lymphocytes # (Auto) 1.19 K/uL Monocytes # (Auto) 0.74 K/uL Eosinophils # (Auto) 0.44 K/uL Basophils # (Auto) 0.04 K/uL RDW Standard Deviation 43.4 fL RDW Coefficient of Variation 12.6 % Immature Granulocyte % (Auto) 0.7 % Immature Granulocyte # (Auto) 0.04 K/uL Sodium Level 137 mmol/L Potassium Level 4.3 mmol/L Chloride Level 103 mmol/L Carbon Dioxide Level 30 mmol/L Anion Gap 4.0 mmol/L Blood Urea Nitrogen 12 mg/dl Creatinine 0.99 mg/dl Est Creatinine Clear Calc Drug Dose 103.3 ml/min Estimated GFR () 96.2 Estimated GFR (Non- 83.0 BUN/Creatinine Ratio 12.5 Random Glucose 106 mg/dl Calcium Level 8.7 mg/dl Total Bilirubin 0.5 mg/dl Aspartate Amino Transf (AST/SGOT) 24 U/L Alanine Aminotransferase (ALT/SGPT) 32 U/L Alkaline Phosphatase 70 U/L Total Protein 6.6 gm/dl Albumin 3.0 gm/dl Globulin 3.6 gm/dl Albumin/Globulin Ratio 0.8 Assessment and Plan (1) Epididymitis Assessment & Plan: will continue with ertapenem, would give 14 days. follow repeat cultures (2) UTI (urinary tract infection) (3) ESBL (extended spectrum beta-lactamase) producing bacteria infection Continued [facility] stay due to: multiple IV medications needed
[2016-11-24] MEDS: ERTAPENEM IV 1 GM in SODIUM CHLOR 0.9% AD-VAN 50ML 50 ML IV SCH (14:35)
[2016-11-24 15:03] VITALS: BP 117/80; PULSE 82; TEMP 36.8; O2SAT 93
[2016-11-24 15:44] VITALS: O2SAT 93
--- NOTE | 2016-11-24 18:48 | Progress Note ---
Medicine Progress Note Date & Time of Visit: Nov 24, 2016 at ~ 14:00 . Subjective No fever. Persistent severe testicular pain requiring analgesics. No dysuria. No nausea, vomiting, diarrhea. . Objective Last 8 Hrs Date Time Temp Pulse Resp B/P (MAP) Pulse Ox O2 Delivery O2 Flow Rate FiO2 11/24/16 15:44 93 Room Air 11/24/16 15:03 36.8 82 18 117/80 (92) 93 Room Air Physical Exam: General- no acute distress Lungs- clear Heart- RRR Abdomen- + BS, soft, nontender - right testicular swelling / tenderness Extremities- no pretibial edema or calf tenderness Neuro- alert . Laboratory Results: Last 24 Hours Test 11/24/16 07:04 White Blood Count 5.60 K/uL Red Blood Count 4.74 M/uL Hemoglobin 15.5 g/dL Hematocrit 44.1 % Mean Corpuscular Volume 93.0 fL Mean Corpuscular Hemoglobin 32.7 pg Mean Corpuscular Hemoglobin Concent 35.1 g/dl Platelet Count 233 K/uL Mean Platelet Volume 10.8 fL Neutrophils (%) (Auto) 56.2 % Lymphocytes (%) (Auto) 21.3 % Monocytes (%) (Auto) 13.2 % Eosinophils (%) (Auto) 7.9 % Basophils (%) (Auto) 0.7 % Neutrophils # (Auto) 3.15 K/uL Lymphocytes # (Auto) 1.19 K/uL Monocytes # (Auto) 0.74 K/uL Eosinophils # (Auto) 0.44 K/uL Basophils # (Auto) 0.04 K/uL RDW Standard Deviation 43.4 fL RDW Coefficient of Variation 12.6 % Immature Granulocyte % (Auto) 0.7 % Immature Granulocyte # (Auto) 0.04 K/uL Sodium Level 137 mmol/L Potassium Level 4.3 mmol/L Chloride Level 103 mmol/L Carbon Dioxide Level 30 mmol/L Anion Gap 4.0 mmol/L Blood Urea Nitrogen 12 mg/dl Creatinine 0.99 mg/dl Est Creatinine Clear Calc Drug Dose 103.3 ml/min Estimated GFR () 96.2 Estimated GFR (Non- 83.0 BUN/Creatinine Ratio 12.5 Random Glucose 106 mg/dl Calcium Level 8.7 mg/dl Total Bilirubin 0.5 mg/dl Aspartate Amino Transf (AST/SGOT) 24 U/L Alanine Aminotransferase (ALT/SGPT) 32 U/L Alkaline Phosphatase 70 U/L Total Protein 6.6 gm/dl Albumin 3.0 gm/dl Globulin 3.6 gm/dl Albumin/Globulin Ratio 0.8 Assessment & Plan EPIDIDYMITIS / ORCHITIS / UTI Urine culture from 11/21 grew ESBL E coli. ID and Urology consulted. 14 day course of IV ertapenem recommended. PICC line placed. URINARY HESITANCY Started on tamsulosin. LEFT RENAL CALCULUS Management per Urology. VTE PROPHYLAXIS SQ enoxaparin. Ambulate. DISPOSITION Expected discharge to home with outpatient antibiotic therapy. Family Medicine follow-up with Dr. Rene Sosa. . Continued [facility] stay due to: multiple IV medications needed Consultants: Urology ID . Procedures: testicular US renal US IV meds . Current Inpatient Medications: Current Inpatient Medications Medications (Trade) Dose Ordered Sig/Lucas Route Start Time Stop Time Status Last Admin Dose Admin Enoxaparin Sodium (Lovenox Inj) 40 mg HS SQ 11/23/16 21:00 12/23/16 20:59 11/23/16 21:00 40 MG Ertapenem 1 gm/ Sodium Chloride 50 ml @ 120 mls/hr Q24H IV 11/23/16 15:00 12/03/16 19:59 11/24/16 14:35 120 MLS/HR Tamsulosin HCl (Flomax Cap) 0.4 mg HS PO 11/23/16 21:00 12/23/16 20:59 11/23/16 20:59 0.4 MG Acetaminophen (Tylenol Tab) 1,000 mg Q8H PRN PO 11/23/16 16:45 12/23/16 16:44 Hydromorphone HCl (Dilaudid Inj) 0.5 mg Q3H PRN IV 11/23/16 16:45 12/07/16 16:44 11/24/16 14:34 0.5 MG Hydromorphone HCl (Dilaudid Inj) 1 mg Q3H PRN IV 11/23/16 16:45 12/07/16 16:44 11/23/16 17:39 1 MG Heparin Sodium (Porcine) (Heparin 10 Unit/ ml 5 ml Flush) 5 ml PRN PRN FLUSH 11/23/16 18:30 9/7/17 18:29 11/24/16 15:28 5 ML
[2016-11-24] MEDS: ENOXAPARIN 40 MG/0.4 ML SYR SQ SCH (21:06)
[2016-11-24] MEDS: TAMSULOSIN HCL 0.4 MG CAP PO SCH (21:06)
[2016-11-24 22:27] VITALS: BP 120/74; PULSE 84; TEMP 36.9; O2SAT 95
[2016-11-24] MEDS ORDERED: ERTA1INJ IV (22:36)
[2016-11-25 07:25] VITALS: BP 111/79; PULSE 97; TEMP 37.2; O2SAT 96
[2016-11-25] MEDS: HYDROmorphone INJ 0.5 MG/0.5 ML SYR IV PRN ×2 (08:43→16:15)
--- NOTE | 2016-11-25 09:23 | Progress Note ---
Subjective Date of Service: Nov 25, 2016. Subjective Pt evaluation today including: conversation w/ patient, chart review, lab review 61 yo male with right epididymitis. Pt reports persistent scrotal pain and swelling this AM. UC&S once again growing ESBL e coli. Pt reports his voiding has improved since starting Flomax. Denies dysuria or hematuria. KUB showing a 1cm left renal stone. He has no previous hx of stones. Problem List Medical Problems: (1) Epididymitis Status: Acute (2) Epididymitis Status: Acute (3) ESBL (extended spectrum beta-lactamase) producing bacteria infection Status: Acute (4) Hydrocele Status: Acute (5) Orchitis Status: Acute (6) Orchitis Status: Acute (7) Pyelonephritis Status: Acute (8) Testicular/scrotal pain Status: Acute (9) UTI (urinary tract infection) Status: Acute Review of Systems Constitutional: No fever, No chills Respiratory: No shortness of breath Cardiac: No chest pain Abdomen: No pain, No nausea, No vomiting Male : No dysuria, No hematuria Heme: No abnormal bleeding/bruising Objective Vital Signs Date Time Temp Pulse Resp B/P (MAP) Pulse Ox O2 Delivery O2 Flow Rate FiO2 11/25/16 07:25 37.2 97 18 111/79 (90) 96 Room Air 11/25/16 00:14 Room Air 11/24/16 22:27 36.9 84 18 120/74 (89) 95 Room Air 11/24/16 15:44 93 Room Air 11/24/16 15:03 36.8 82 18 117/80 (92) 93 Room Air Physical Exam General Appearance: no apparent distress Eyes: normal inspection ENT: hearing grossly normal Neck: no JVD Respiratory/Chest: no respiratory distress, no accessory muscle use Cardiovascular: no JVD Extremities: normal inspection Neurologic/Psychiatric: alert, normal mood/affect, oriented x 3 Skin: normal color Comments: Right epididymis remains tender and swollen on exam. Erythema and swelling slightly improved from yesterday. Assessment and Plan (1) Epididymitis (2) Orchitis (3) ESBL (extended spectrum beta-lactamase) producing bacteria infection (4) UTI (urinary tract infection) (5) Stone, kidney A/P: Right epididymitis, ESBL UTI, left renal stone, LUTS 1. Right epididymitis, ESBL UTI Continue ertapenem per ID. Appreciate consult. No plan for surgical intervention at this time. Supportive management with pain control, ice packs, and scrotal elevation. 2. LUTS Improved on Flomax. Will continue. Suspect a component of BPH. Will plan for MIKE when not in the setting of aggressive infection. The pt will likely need a cysto as an outpatient as well. Will arrange once infection has been adequately managed. Will also plan to check a PSA in the future when not in the setting of UTI. 3. Left renal stone 1cm left renal stone on KUB. The pt has no previous hx of stones. Recommend outpatient ESWL once his infection has been adequately tx as stone is too large to pass on own. Will continue to follow along with primary service at this time. Continued [facility] stay due to: multiple IV medications needed
--- NOTE | 2016-11-25 14:57 | Progress Note ---
Subjective Date of Service: Nov 25, 2016. Subjective Pt evaluation today including: conversation w/ patient, physical exam, chart review, lab review pt seen in followup, doing well. states he is to be d/c home later today, will continue with IV abx at home starting tomorrow. no f/c. no abd pain. states testicular pain and swelling have improved. for urology f/u post d/c. urine culture with ESBL E. coli and blood cultures are negative, s/p picc line. all remaining ros reviewed and are negative. Problem List Medical Problems: (1) Epididymitis Status: Acute (2) Epididymitis Status: Acute (3) ESBL (extended spectrum beta-lactamase) producing bacteria infection Status: Acute (4) Hydrocele Status: Acute (5) Orchitis Status: Acute (6) Orchitis Status: Acute (7) Pyelonephritis Status: Acute (8) Testicular/scrotal pain Status: Acute (9) UTI (urinary tract infection) Status: Acute Objective Vital Signs Date Time Temp Pulse Resp B/P (MAP) Pulse Ox O2 Delivery O2 Flow Rate FiO2 11/25/16 08:00 Room Air 11/25/16 07:25 37.2 97 18 111/79 (90) 96 Room Air 11/25/16 00:14 Room Air 11/24/16 22:27 36.9 84 18 120/74 (89) 95 Room Air 11/24/16 15:44 93 Room Air 11/24/16 15:03 36.8 82 18 117/80 (92) 93 Room Air Physical Exam General Appearance: WD/WN, no apparent distress Eyes: normal inspection, EOMI Neck: supple Respiratory/Chest: lungs clear, normal breath sounds, no respiratory distress Cardiovascular: regular rate, rhythm, no edema Abdomen: soft Extremities: non-tender, normal inspection, no pedal edema Neurologic/Psychiatric: alert, oriented x 3 Skin: normal color Laboratory Results Item Value Date Time Urine Culture - Final Complete 11/23/16 1025 Urine , Clean Catch Escherichia Coli Blood Culture - Preliminary Resulted 11/23/16 1045 Blood NO GROWTH TO DATE. Blood Culture - Preliminary Resulted 11/23/16 1120 Blood NO GROWTH TO DATE. Assessment and Plan (1) Epididymitis Assessment & Plan: will continue with ertapenem, would give 14 days. follow repeat cultures - ESBL as well. blood cultures negative. ok for d/c from ID standpoint. (2) UTI (urinary tract infection) (3) ESBL (extended spectrum beta-lactamase) producing bacteria infection Continued [facility] stay due to: multiple IV medications needed
[2016-11-25] MEDS: ERTAPENEM IV 1 GM in SODIUM CHLOR 0.9% AD-VAN 50ML 50 ML IV SCH (15:33)
[2016-11-25 16:37] VITALS: BP 111/79; PULSE 97; TEMP 37.2; O2SAT 96
--- NOTE | 2016-11-25 17:01 | Progress Note ---
Medicine Progress Note Date & Time of Visit: Nov 25, 2016 at 11:20 . Subjective No fever. Less testicular pain. Voiding without difficulty. No nausea, vomiting, diarrhea. . Objective Last 8 Hrs Date Time Temp Pulse Resp B/P (MAP) Pulse Ox O2 Delivery O2 Flow Rate FiO2 11/25/16 16:37 37.2 97 18 96 Room Air Physical Exam: General- no distress Lungs- clear Heart- RRR Abdomen- + BS, soft, nontender - less swelling / tenderness right testicle Extremities- no pretibial edema or calf tenderness Neuro- alert . Assessment & Plan EPIDIDYMITIS / ORCHITIS / UTI Urine culture from 11/21 grew ESBL E coli. ID and Urology consulted. 14 day course of IV ertapenem recommended. PICC line placed. Symptoms and exam improved. Discharge on IV ertapenem to complete course of therapy. URINARY HESITANCY Started on tamsulosin with improvement. Follow-up with Urology. LEFT RENAL CALCULUS Management per Urology. VTE PROPHYLAXIS SQ enoxaparin. Ambulate. DISPOSITION Discharge to home with outpatient antibiotic therapy. Family Medicine follow-up with Dr. Rene Sosa. Urology follow-up with LEO Loya and Dr. Garcia. . Continued [facility] stay due to: multiple IV medications needed Consultants: Urology ID . Procedures: testicular US renal US IV meds . Current Inpatient Medications: Current Inpatient Medications Medications (Trade) Dose Ordered Sig/Lucas Route Start Time Stop Time Status Last Admin Dose Admin Enoxaparin Sodium (Lovenox Inj) 40 mg HS SQ 11/23/16 21:00 12/23/16 20:59 11/24/16 21:06 40 MG Ertapenem 1 gm/ Sodium Chloride 50 ml @ 120 mls/hr Q24H IV 11/23/16 15:00 12/03/16 19:59 11/25/16 15:33 120 MLS/HR Tamsulosin HCl (Flomax Cap) 0.4 mg HS PO 11/23/16 21:00 12/23/16 20:59 11/24/16 21:06 0.4 MG Acetaminophen (Tylenol Tab) 1,000 mg Q8H PRN PO 11/23/16 16:45 12/23/16 16:44 Hydromorphone HCl (Dilaudid Inj) 0.5 mg Q3H PRN IV 11/23/16 16:45 12/07/16 16:44 11/25/16 16:15 0.5 MG Hydromorphone HCl (Dilaudid Inj) 1 mg Q3H PRN IV 11/23/16 16:45 12/07/16 16:44 11/23/16 17:39 1 MG Heparin Sodium (Porcine) (Heparin 10 Unit/ ml 5 ml Flush) 5 ml PRN PRN FLUSH 11/23/16 18:30 12/23/16 18:29 11/25/16 16:15 5 ML
[2016-11-25] MEDS ORDERED: HYDR-3419 PO (17:03)
[2016-11-25] MEDS ORDERED: FLM4 PO (17:03)
--- NOTE | 2016-11-25 17:16 | Discharge Instructions ---
Discharge Instructions Date of Service Nov 25, 2016. Admission Reason for Admission: infection of bladder and testicles Discharge Discharge Diagnosis / Problem: infection of bladder and testicles Discharge Goals Goal(s): Decrease discomfort, Improve disease control Activity Recommendations Activity Limitations: resume your previous activity . Instructions / Follow-Up Instructions / Follow-Up FOLLOW-UP APPOINTMENTS: FAMILY MEDICINE 11/29/2016 2:00 PM Obie Alcantara III, MD (covering for Dr. Sosa) [facility] (This was the latest available appointment; office will contact you if there are any appointments available later in the day.) UROLOGY Dr. Garcia or LEO Loya [facility] Urology Please call for appointment if you don't hear back from them. [phone] Elevate scrotum as necessary. Apply ice packs as necessary. You will be receiving intravenous ertapenem (Invanz) for infection of testicles and bladder. Daily treatments in [facility]'s Medical Treatment Unit for 11 days. Seek medical attention if you have: * temperature above 101 * abdominal pain, nausea, vomiting * diarrhea, dark stools or bloody stools * worsening pain or swelling of testicles * trouble urinating, blood in urine * any unanswered questions or concerns Call 911 if symptoms are severe. Call if you have any questions or problems. My cell # is [phone]. You can also reach a [facility] hospitalist on duty at [facility] 24 hours a day by calling [phone]. Please take good care of yourself. Obie Sterling . Current Hospital Diet Patient's current hospital diet: AHA Diet (Heart Healthy) Discharge Diet Recommended Diet: Regular Diet Pending Studies Studies pending at discharge: yes (HIV testing) List of pending studies: HIV gonorrhea Chlamydia Work Instructions Return To Work: 5 days Lifting Limitations: none Additional Instructions: Everton Varner has been absent from work since 11/23/16 due to illness. Expected return to work 11/29/16 without restriction, although he may need some scheduling flexibility for follow-up appointments and treatments. Medical Emergencies . Who to Call and When: Medical Emergencies: If at any time you feel your situation is an emergency, please call 911 immediately. . Non-Emergent Contact Non-Emergency issues call your: Primary Care Provider, Hospital Doctor, Urologist . . "Provider Documentation" section prepared by Obie Sterling. . VTE Core Measure Inpt VTE Proph given/why not?: Enoxaparin (Lovenox)SQ [place] Drug Monitoring Program Search Results: patient reviewed within database, no issues identified
--- NOTE | 2016-11-25 22:14 | Discharge Summary ---
Discharge Summary Date of Service Nov 25, 2016. Discharge Summary Admission Date: Nov 23, 2016 at 12:55 Discharge Date: Nov 25, 2016 Discharge Disposition: Home Principal Diagnosis: urinary tract infection / orchitis with E coli . Procedures: testicular US renal US IV meds . Consultations: Urology ID . Medication Reconciliation New Medications: Ertapenem Sodium (Invanz) 1 Gm Inj 1 GM IV DAILY for 11 Days, #11 VIAL Dx: urinary tract infection, orchitis, epididymitis Hydrocodon/Acetaminophen 5MG/300MG (Vicodin (5MG/300MG)) 1 Tab Tab 2 TABS PO Q6H PRN for Pain, #20 TAB Take as needed for severe pain. Do not drive for 6 hours after taking dose. Tamsulosin HCl (Tamsulosin HCl) 0.4 Mg Cap 0.4 MG PO HS, #30 CAP 5 Refills Continued Medications: Ibuprofen (Advil) 200 Mg Tab 400-600 MG PO Q6H PRN for Pain Tramadol (Ultram) 50 Mg Tab 50 MG PO BID PRN for Pain New instructions 11/25/16: take 2 pill every 6 hrs as needed for moderate pain Discontinued Medications: Ciprofloxacin Hcl (Cipro) 500 Mg Tab 500 MG PO BID started 11/21/16 for 7 day therapy Admission Information HPI (per Admitting provider): This is a 61-year-old male who was originally presented to the the emergency room on Tuesday11/21/2016 for 1 day of pain and swelling of testicle with accompanied symptoms of urinary retention. Patient had testicular ultrasound on 11/21/2016 with following findings: Marked increased flow flow within the right testis which is enlarged in comparison to the left and heterogeneous consistent with an epididymoorchitis. Urine cultures were drawn and patient given oral ciprofloxacin. Urine cultures returned today on 11/23/2016 with ESBL ecoli sensitive to amikacin, ertapenem, imipenem, nitrofurantoin, piperacillin and tazobactam (Zosyn). Patient was recalled to the in the ED on 11/23/2016. In the ED patient had renal ultrasound without acute findings and given 4.5 g of Zosyn IV. Patient seen and examined by hospitalist medicine physician. Not in acute distress. Reports that since he has been on the outpatient Ciprofloxacin therapy , he feels that has urinary stream has improved but continues to have swelling and pain particularly at right side of scrotal sac/ right testicle . Physical Exam (per Admitting): General Appearance: no apparent distress, + obese Head: normocephalic, atraumatic Eyes: normal inspection, PERRL, EOMI, sclerae normal ENT: hearing grossly normal, pharynx normal Neck: supple, no adenopathy, no JVD, trachea midline Respiratory/Chest: chest non-tender, lungs clear, normal breath sounds, no respiratory distress, no accessory muscle use Cardiovascular: regular rate, rhythm, no edema, normal peripheral pulses Abdomen/GI: normal bowel sounds, non tender, soft Genitourinary - Male: no genital lesions, no urethral discharge, + testicular tenderness (right testicle more enlarged compared to left, erythema of scrotal sac) Back: normal inspection, no CVA tenderness, no muscle spasm, normal range of motion Extremities/Musculoskelatal: normal inspection, no calf tenderness, no pedal edema Neurologic/Psych: no motor/sensory deficits, alert, normal mood/affect, oriented x 3 Skin: + rash (erythema of scrotal sac) Lymphatic: no adenopathy Hospital Course EPIDIDYMITIS / ORCHITIS / UTI Presented with severe right testicular pain. Urine culture from ED on 11/21 grew E coli (ESBL). No apparent testicular torsion per US. ID and Urology consulted. 14 day course of IV ertapenem recommended. PICC line placed. Symptoms and exam improved. Discharge on IV ertapenem to complete course of therapy. URINARY HESITANCY Started on tamsulosin with improvement. Follow-up with Urology. LEFT RENAL CALCULUS Management per Urology. VTE PROPHYLAXIS SQ enoxaparin. Ambulate. DISPOSITION Discharge to home with outpatient antibiotic therapy. Family Medicine follow-up with Dr. Rene Sosa. Urology follow-up with LEO Loya and Dr. Garcia. . Total time spent on discharge = 35 min. This includes examination of the patient, discharge planning, medication reconciliation, and communication with other providers. . Discharge Instructions Date of Service Nov 25, 2016. Admission Reason for Admission: infection of bladder and testicles Discharge Discharge Diagnosis / Problem: infection of bladder and testicles Discharge Goals Goal(s): Decrease discomfort, Improve disease control Activity Recommendations Activity Limitations: resume your previous activity . Instructions / Follow-Up Instructions / Follow-Up FOLLOW-UP APPOINTMENTS: FAMILY MEDICINE 11/29/2016 2:00 PM Obie Alcantara III, MD (covering for Dr. Sosa) [facility] (This was the latest available appointment; office will contact you if there are any appointments available later in the day.) UROLOGY Dr. Garcia or LEO Loya [facility] Urology Please call for appointment if you don't hear back from them. [phone] Elevate scrotum as necessary. Apply ice packs as necessary. You will be receiving intravenous ertapenem (Invanz) for infection of testicles and bladder. Daily treatments in [facility]'s Medical Treatment Unit for 11 days. Seek medical attention if you have: * temperature above 101 * abdominal pain, nausea, vomiting * diarrhea, dark stools or bloody stools * worsening pain or swelling of testicles * trouble urinating, blood in urine * any unanswered questions or concerns Call 911 if symptoms are severe. Call if you have any questions or problems. My cell # is [phone]. You can also reach a [facility] hospitalist on duty at [facility] 24 hours a day by calling [phone]. Please take good care of yourself. Obie Sterling . Current Hospital Diet Patient's current hospital diet: AHA Diet (Heart Healthy) Discharge Diet Recommended Diet: Regular Diet Pending Studies Studies pending at discharge: yes (HIV testing) List of pending studies: HIV gonorrhea Chlamydia Work Instructions Return To Work: 5 days Lifting Limitations: none Additional Instructions: Everton Varner has been absent from work since 11/23/16 due to illness. Expected return to work 11/29/16 without restriction, although he may need some scheduling flexibility for follow-up appointments and treatments. Medical Emergencies . Who to Call and When: Medical Emergencies: If at any time you feel your situation is an emergency, please call 911 immediately. . Non-Emergent Contact Non-Emergency issues call your: Primary Care Provider, Hospital Doctor, Urologist . . "Provider Documentation" section prepared by Obie Sterling. . VTE Core Measure Inpt VTE Proph given/why not?: Enoxaparin (Lovenox) [place] Drug Monitoring [place] Search Results: patient reviewed within database, no issues identified . Additional Copies To Angeline Olmos CRNP; Rene Sosa D.O.; Alfredo Garcia D.O.
[2016-11-26 02:58] LABS: CHLAMYDIA TRACH RNA*** NOT DETECTED (NOT DETECTED); GC (NEIS GONORRHOEAE)RNA** NOT DETECTED (NOT DETECTED)
== END 2016-11-25 17:38 | disposition home or self-care (01) | DRG 728 ==
LOC: C.EDB 09:41 → C.MS2W 12:55 → ENRESERV 13:32 → EDBEDREQ 13:43
PROVIDERS: ADMIT Hospitalist; ATTEND Hospitalist
PROC: 02HV33Z Insertion of Infusion Device into Superior Vena Cava, Percutaneous Approach (ICD-10-PCS; principal; 2016-11-23)
DX: N45.3 Epididymo-orchitis (principal); N39.0 Urinary tract infection, site not specified; B96.20 Unspecified Escherichia coli [E. coli] as the cause of diseases classified elsewhere; Z16.12 Extended spectrum beta lactamase (ESBL) resistance; R33.9 Retention of urine, unspecified; R39.11 Hesitancy of micturition; N40.1 Benign prostatic hyperplasia with lower urinary tract symptoms; N20.0 Calculus of kidney; E66.9 Obesity, unspecified; Z68.33 Body mass index [BMI] 33.0-33.9, adult; Z87.891 Personal history of nicotine dependence

== ENCOUNTER 2017-07-04 11:22 | Emergency (ER) | payer OTHER ==
[~2017-07-04] VITALS: Ht 182.9 cm; Wt 114.7 kg
[~2017-07-04 11:22] MED LIST changes: -CIPR-255 PO; +FLM4 PO; +HYDR-3419 PO; +IBUP-1050 PO
[2017-07-04 11:23] VITALS: TEMP 37; Ht 182.9 cm; Wt 114.7 kg
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
[2017-07-04] MEDS ORDERED: OXYCODONE/ACETAMINOPHEN 5-325 TAB PO ONE (12:45)
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
[2017-07-04] MEDS ORDERED: LIDODERM (LIDOCAINE) PATCH 5% TD STA (14:20)
[2017-07-04] MEDS ORDERED: IBUPROFEN 800 MG TAB PO STA (14:20)
[2017-07-04] MEDS ORDERED: OXYC1TAB3 PO (14:23)
[2017-07-04] MEDS ORDERED: IBUP-1451 PO (14:23)
[2017-07-04] MEDS ORDERED: LDDP5 TD (14:23)
[2017-07-04] MEDS ORDERED: RIZA5TAB10 PO (14:25)
[2017-07-04 14:59] VITALS: BP 118/78; PULSE 70; O2SAT 98
== END 2017-07-04 15:00 | disposition home or self-care (01) ==
LOC: C.EDB 11:22
DX: S32.000D Wedge compression fracture of unspecified lumbar vertebra, subsequent encounter for fracture with routine healing (principal); V89.2XXD Person injured in unspecified motor-vehicle accident, traffic, subsequent encounter; Z87.891 Personal history of nicotine dependence; Z88.8 Allergy status to other drugs, medicaments and biological substances; Z91.030 Bee allergy status

== ENCOUNTER 2020-05-03 06:01 | Inpatient (IN) ==
--- OUTSIDE RECORDS SUMMARY | 2020-05-03 06:04 | External Medical Summary | Continuity of Care Document ---
:1955 Author Name Woody Myers Address Unavailable Unavailable , Care Team Providers Name Role Phone AlexxG Louis Unavailable [email or web address] Girma Myers Unavailable [email or web address] Unavailable Unavailable Unavailable Unavailable Unavailable Problems Recurrent right inguinal hernia (550.91) (K40.91) Fracture Of Corpus Cavernosum Penis (959.13) Allergies and Adverse Reactions Vioxx TABS (Allergy) Reaction: Rash Medications ProAir HFA 108 (90 Base) MCG/ACT Inhalat ion Aerosol Solution; INHALE 1 PUFF EVERY 4 HOURS NEEDED. Start: 25-Aug-2015 Refills: 0 oxyCODONE-Acetaminophen 5-325 MG Oral Ta blet; TAKE 1 TABLET EVERY 4 TO 6 HOURS NEEDED FOR PAIN. Louis Rayo Start: 01-Sep-2015 Quantity: 20 Refills: 0 Procedures History of Hernia Repair Status: Complet ed History of Surgery Penis Status: Complet ed Immunizations Immunizations not documented Family History Mother Adopted (V68.89) (Z02.82) Status: Active Father Adopted (V68.89) (Z02.82) Status: Active Social History - Smoking Status Ex-smoker Plan of Treatment Planned Observations Planned Goals not documented Results No Known Results Results not documented
[2020-05-03] MEDS ORDERED: ADENOSINE IV SOLN 3 MG/ML 2 ML VIAL IV ONE (06:24)
[2020-05-03] MEDS ORDERED: METOPROLOL TARTRATE 1 MG/ML VIAL IV ONE (06:51)
[2020-05-03] MEDS ORDERED: ALBUT/IPRATROP 3MG/0.5MG NEB 3 ML VIAL INH STA (06:52)
[2020-05-03] MEDS ORDERED: ADENOSINE IV SOLN 3 MG/ML 2 ML VIAL IV STA ×2 (06:52)
[2020-05-03] MEDS ORDERED: METOPROLOL TARTRATE 1 MG/ML VIAL IV STA (06:53)
[2020-05-03] MEDS ORDERED: METOPROLOL TARTRATE 1 MG/ML VIAL IV PRN (06:56)
[2020-05-03] MEDS ORDERED: CEFEPIME 2,000 MG/20 ML VIAL IV STA (07:04)
--- NOTE | 2020-05-03 07:56 | XRay Report ---
XR chest 1V portable CLINICAL HISTORY: Dyspnea COMPARISON STUDY: Chest radiograph November 23, 2016. Chest CT March 27, 2015. FINDINGS: Moderate elevation of the right hemidiaphragm has increased since CT of March 27, 2015. There is no evidence for pulmonary edema. There is no pneumothorax or pleural effusion. There is mini mal left basilar opacity. IMPRESSION: 1. Minimal left basilar opacity which may reflect an infectious process or atelectasis. Radiographic follow-up is recommended. 2. Increase in moderate elevation of the right hemidiaphragm. ACT 112: Negative or not required by law. Electronically signed by: Jaylen Coronel M.D. 05/03/2020 7:55 AM
[2020-05-03 08:53] LABS: Basophils # (auto) 0.04 K/uL (0-0.2); Basophils % (auto) 0.7 %; Eosinophils # (auto) 0.67 K/uL (0-0.5); Eosinophils % (auto) 11.8 %; Hemoglobin 16.1 g/dL (14.0-18.0); Immature Granulocytes # (auto) 0.01 K/uL (0.00-0.02); Immature Granulocytes % (auto) 0.2 %; Lymphocytes # (auto) 1.44 K/uL (1.2-3.4); Lymphocytes % (auto) 25.4 %; Mean Corpuscular Hemoglobin 32.3 pg (25-34); Mean Corpuscular Hgb Conc 34.3 g/dL (32-36); Mean Corpuscular Volume 94.4 fL (80-100); Monocytes # (auto) 0.69 K/uL (0.11-0.59); Monocytes % (auto) 12.1 %; Neutrophils # (auto) 2.83 K/uL (1.4-6.5); Neutrophils % (auto) 49.8 %; Platelet Count 153 K/uL (130-400); RDW Standard Deviation 44.5 fL (36.4-46.3); Red Blood Count 4.98 M/uL (4.7-6.1); White Blood Count 5.68 K/uL (4.8-10.8)
[2020-05-03 09:00] LABS: INR 1.1 (0.9-1.1); Partial Thromboplastin Time 27.9 Seconds (21.0-31.0); Prothrombin Time 11.1 Seconds (9.0-12.0)
--- NOTE | 2020-05-03 09:16 | Emergency Department Note ---
Impression & Plan SVT (supraventricular tachycardia), COVID-19, Asthma exacerbation ED Provider Note NAME: TREE FLOR AGE: 64 SEX: M ARRIVES VIA: Walk-In INFORMANT: Patient, ED PROVIDER(S): Cindy Carreon MD CHIEF COMPLAINT: Shortness of breath, Covid positive PLAN: Disposition: Evaluation by the hospitalist Condition: Fair Referral: [facility]ist MEDICAL DECISION MAKING: This patient is a 64-year-old male who presents emergency department with complaints of difficulty breathing. He states he has a history of asthma and did test positive for COVID-19 around April 09. He states he has been feeling some sweats and chills over the last 2 days. He has a remote history of smoking and IV drug abuse. He states he does use marijuana occasionally. Peripheral IV access was exceedingly difficult secondary to the patient's history of drug abuse. He is also diaphoretic and tachycardic making central access more difficult. EJ's were attempted in the bilateral neck and unsuccessful. Using the blue light, the EJ was not easily identified. A 22- gauge was established in the left foot and a second in the right forearm. IV adenosine 6 mg was administered with no effect. I suspect it is too far away from the source and too small a line to be useful. Metoprolol 5 mg was administered which was successful in controlling the patient's rate. Patient did periodically break back into the SVT for several seconds to minutes at a time. A second dose of metoprolol 5 mg IV was ordered. Patient's laboratory work is reassuring, lactate is 1.4, troponin is negative. Patient's vital signs have stabilized. Patient was given a DuoNeb treatment and 6 mg of IV dexamethasone for the asthma/Covid. This did help his breathing tremendously. Ideally a CT angiogram of the chest will be performed however access is limited at this time. He was given IV cefepime empirically as he has had history of bacteremia/sepsis. Given the patient's recent Covid infection, persistent or recurrent SVT and asthma exacerbation, he will be evaluated by the hospitalist service for further management. Triage Nursing notes reviewed. No previous medical records accessible. Differential diagnosis: Reactive airway disease, pneumonia, pneumothorax, COPD, CHF, infections, cardiac ischemia, pulmonary embolism, musculoskeletal, gastrointestinal, as well as o ther pathologies. ER treatment provided: IV normal saline solution IV metoprolol IV adenosine IV cefepime DuoNeb Diagnostics interpreted by me: ECG: Supraventricular tachycardia at 180 bpm. Possible previous inferior infa rct with Q waves noted. No significant ST segment changes. No PVC, no PAC. QTc is 474. Normal axis Cardiac Monitoring: An order for cardiac monitoring was placed and the patient is noted to be in a supraventricular tachycardia at 168 bpm Laboratory studies: Troponin negative Lactate 1.4 Imaging studies: XR chest 1V portable CLINICAL HISTORY: Dyspnea COMPARISON STUDY: Chest radiograph November 23, 2016. Chest CT March 27, 2015. FINDINGS: Moderate elevation of the right hemidiaphragm has increased since CT of March 27, 2015. There is no evidence for pulmonary edema. There is no pneumothorax or pleural effusion. There is minimal left basilar opacity. IMPRESSION: 1. Minimal left basilar opacity which may reflect an infectious process or atelectasis. Radiographic follow-up is recommended. 2. Increase in moderate elevation of the right hemidiaphragm. ACT 112: Negative or not required by law. Electronically signed by: Jaylen Coronel M.D. 05/03/2020 7:55 AM Dictated: 05/03/20 0752Transcribed: 05/03/[address] ANGIOGRAPHY OF THE CHEST, PULMONARY EMBOLUS PROTOCOL CLINICAL HISTORY: Shortness of breath. Evaluate for pulmonary embolus. COMPARISON STUDY: Chest CT March 27, 2015. Chest radiograph May 03, 2020 TECHNIQUE: Following IV administration of 120 mL of Optiray-320, helical axial images of the chest were obtained utilizing the pulmonary embolus protocol. Maximal intensity projections and sagittal and coronal reformats were viewed on an independent 3D workstation. IV contrast was administered without complication. Automated exposure control was utilized for the study. A dose lowering technique was utilized adhering to the principles of ALARA. CT DOSE: 839.72 mGy.cm FINDINGS: No pulmonary emboli are identified. There is no thoracic aortic dissection. Size of the heart is normal. No enlarged thoracic lymph nodes are noted. Right lower lobe opacity favors atelectasis. There is moderate elevation of the right hemidiaphragm. Note is made of mild groundglass opacities within the left lung. No pneumothorax or pleural effusion is noted. Central airways are patent. Marked hepatic steatosis is noted. IMPRESSION: 1. No pulmonary emboli identified. 2. Minimal groundglass opacities within the left lung which favor an infectious process. 3. Moderate elevation of the right hemidiaphragm. 4. Marked hepatic steatosis. ACT 112: Negative or not required by law. Electronically signed by: Jaylen Coronel M.D. 05/03/2020 6:07 PM Dictated: 05/03/201800Transcribed: 05/03/201800 Consultation(s): Hospitalist HPI: 64/M arrives for evaluation of difficulty breathing. He states he has a history of asthma and did test positive for COVID-19 around April 09. He states he has been feeling some sweats and chills over the last 2 days. He has a remote history of smoking and IV drug abuse. He states he does use marijuana occasionally. Patient has been coughing and having difficulty with exertion but he denies any significant chest pain. Patient denies any nausea, vomiting or diarrhea. Patient has been coughing and having difficulty with exertion but he denies any significant chest pain currently. ROS: See above HPI for pertinent positives & negatives. A total of 10 systems reviewed and were otherwise negative. PAST MEDICAL HISTORY:See Below PAST SURGICAL HISTORY:See Below FAMILY HISTORY:See Below SOCIAL HISTORY:See Below HOME MEDICATIONS:See Below ALLERGIES: Rofecoxib, bee venom PHYSICAL EXAMINATION: [] I have personally spent greater than 45 minutes of critical care time in the direct management of this patient. This includes bedside care, interpretation of diagnostic studies, and testing, discussion with consultants, patient, and family members, and other required patient management activities. This 45 minutes is in excess of all separately billable procedures. Cindy Carreon MD Past Med/Surg History Medical History Asthma BPH (benign prostatic hyperplasia) History of ESBL E. coli infection "urine 11/21/16" History of renal calculi "per US 11/23/16" Surgical History Status post hernia repair Family History Other Adopted Social History Smoking Status: Former smoker Second Hand Exposure: No; Do You Dip or Chew Tobacco: No; Tobacco Cessation Education Requested by Patient: No Hx Alcohol Use: Yes Hx Substance Use: Yes Last Used Substance: Unknown Substance Use Type Other:: IV DRUG USE Preferred Language: Niuean Communication Ability: Effective Twisting Operator Required: No Beliefs That Will Affect Care: None and Spiritual Spiritual Healthcare Practices: [facility] Current Living Situation: Alone Other Information That Helps Us Care for You: No Feels Safe at Home: Yes Safety Concerns: Feels Safe At This Time Assistive Devices: None Allergies Allergies Allergy/AdvReac Type Severity Reaction Status Date / Time rofecoxib Allergy Mild RASH Verified 05/03/20 06:37 bee venom protein (honey bee) Allergy Unknown SWELLING Verified 05/03/20 06:37 Home Meds Home Medications Medication Instructions Recorded Confirmed albuterol sulfate 2 puff INHALATION Q4H PRN 05/03/20 05/03/20 tamsulosin 0.4 mg PO DAILY 05/03/20 05/03/20 tiotropium bromide [Spiriva with 1 cap INHALATION DAILY 05/03/20 05/03/20 HandiHaler] Results & Data (ED) Vital Signs Vital Signs - 24 hr 05/03/20 06:40 05/03/20 06:50 05/03/20 06:57 Pulse Rate 181 H 104 H 189 H Pulse Rate [Finger] Pulse Rate from SpO2 Sensor 179 H 105 H Pulse Rhythm [Finger] Pulse Strength [Finger] Respiratory Rate 20 24 Respiratory Effort / Characteristics Respiratory Depth Respiratory Pattern Blood Pressure 141/91 H Blood Pressure [Right Arm] Blood Pressure Mean Blood Pressure Mean [Right Arm] Pulse Oximetry 96 96 Oxygen Delivery Method 05/03/20 07:00 05/03/20 07:01 05/03/20 07:04 Pulse Rate 81 86 Pulse Rate [Finger] Pulse Rate from SpO2 Sensor 70 68 Pulse Rhythm [Finger] Pulse Strength [Finger] Respiratory Rate 21 24 Respiratory Effort / Characteristics Accessory Muscle Use Labored Short of Breath Respiratory Depth Deep Respiratory Pattern Bradypnea Rapid/Deep Tachypnea Blood Pressure 122/84 Blood Pressure [Right Arm] Blood Pressure Mean 104 Blood Pressure Mean [Right Arm] Pulse Oximetry 94 95 Oxygen Delivery Method 05/03/20 07:06 05/03/20 07:10 05/03/20 07:20 Pulse Rate 82 83 94 H Pulse Rate [Finger] Pulse Rate from SpO2 Sensor 61 66 Pulse Rhythm [Finger] Pulse Strength [Finger] Respiratory Rate 19 21 Respiratory Effort / Characteristics Respiratory Depth Respiratory Pattern Blood Pressure Blood Pressure [Right Arm] Blood Pressure Mean Blood Pressure Mean [Right Arm] Pulse Oximetry 94 94 93 Oxygen Delivery Method Room Air 05/03/20 07:28 05/03/20 07:30 05/03/20 07:31 Pulse Rate Pulse Rate [Finger] 85 Pulse Rate from SpO2 Sensor 79 75 Pulse Rhythm [Finger] Pulse Strength [Finger] Respiratory Rate 18 Respiratory Effort / Characteristics Spontaneous Short of Breath Respiratory Depth Respiratory Pattern Blood Pressure 132/89 Blood Pressure [Right Arm] Blood Pressure Mean 94 Blood Pressure Mean [Right Arm] Pulse Oximetry 94 95 100 Oxygen Delivery Method Room Air 05/03/20 07:40 05/03/20 07:49 05/03/20 07:50 Pulse Rate 88 Pulse Rate [Finger] 92 H Pulse Rate from SpO2 Sensor 60 61 Pulse Rhythm [Finger] Pulse Strength [Finger] Respiratory Rate 20 Respiratory Effort / Characteristics Respiratory Depth Respiratory Pattern Blood Pressure Blood Pressure [Right Arm] 132/89 Blood Pressure Mean Blood Pressure Mean [Right Arm] 103 Pulse Oximetry 94 93 92 Oxygen Delivery Method Room Air 05/03/20 08:00 05/03/20 08:10 05/03/20 08:20 Pulse Rate 86 83 84 Pulse Rate [Finger] Pulse Rate from SpO2 Sensor 69 79 110 H Pulse Rhythm [Finger] Pulse Strength [Finger] Respiratory Rate 21 24 21 Respiratory Effort / Characteristics Respiratory Depth Respiratory Pattern Blood Pressure Blood Pressure [Right Arm] Blood Pressure Mean Blood Pressure Mean [Right Arm] Pulse Oximetry 94 94 85 L Oxygen Delivery Method 05/03/20 08:30 05/03/20 08:40 05/03/20 08:50 Pulse Rate 90 91 H 91 H Pulse Rate [Finger] 92 H Pulse Rate from SpO2 Sensor 66 94 H 71 Pulse Rhythm [Finger] Pulse Strength [Finger] Respiratory Rate 22 22 21 Respiratory Effort / Characteristics Respiratory Depth Respiratory Pattern Blood Pressure 121/77 Blood Pressure [Right Arm] 121/77 Blood Pressure Mean 80 Blood Pressure Mean [Right Arm] 91 Pulse Oximetry 93 94 94 Oxygen Delivery Method Room Air 05/03/20 08:51 05/03/20 09:00 05/03/20 09:01 Pulse Rate 87 97 H 94 H Pulse Rate [Finger] Pulse Rate from SpO2 Sensor 79 84 73 Pulse Rhythm [Finger] Pulse Strength [Finger] Respiratory Rate 19 20 24 Respiratory Effort / Characteristics Respiratory Depth Respiratory Pattern Blood Pressure 110/80 Blood Pressure [Right Arm] Blood Pressure Mean 82 Blood Pressure Mean [Right Arm] Pulse Oximetry 93 90 94 Oxygen Delivery Method 05/03/20 09:10 05/03/20 09:20 05/03/20 09:30 Pulse Rate 94 H 96 H 97 H Pulse Rate [Finger] 95 H Pulse Rate from SpO2 Sensor 77 90 98 H Pulse Rhythm [Finger] Pulse Strength [Finger] Respiratory Rate 21 19 22 Respiratory Effort / Characteristics Respiratory Depth Respiratory Pattern Blood Pressure 139/79 Blood Pressure [Right Arm] 139/79 Blood Pressure Mean 104 Blood Pressure Mean [Right Arm] 99 Pulse Oximetry 94 92 92 Oxygen Delivery Method Room Air 05/03/20 09:31 05/03/20 09:40 05/03/20 09:44 Pulse Rate 95 H 102 H Pulse Rate [Finger] 119 H Pulse Rate from SpO2 Sensor 95 H 101 H Pulse Rhythm [Finger] Regular Pulse Strength [Finger] Normal Respiratory Rate 20 20 Respiratory Effort / Characteristics Respiratory Depth Respiratory Pattern Blood Pressure Blood Pressure [Right Arm] Blood Pressure Mean Blood Pressure Mean [Right Arm] Pulse Oximetry 92 93 Oxygen Delivery Method 05/03/20 09:50 05/03/20 10:00 05/03/20 10:01 Pulse Rate 98 H 99 H 99 H Pulse Rate [Finger] Pulse Rate from SpO2 Sensor 98 H 95 H 100 H Pulse Rhythm [Finger] Pulse Strength [Finger] Respiratory Rate 21 21 19 Respiratory Effort / Characteristics Respiratory Depth Respiratory Pattern Blood Pressure 110/84 Blood Pressure [Right Arm] Blood Pressure Mean 95 Blood Pressure Mean [Right Arm] Pulse Oximetry 94 84 L 94 Oxygen Delivery Method Laboratory Data Result diagrams: 05/03/20 08:24 05/03/20 08:24 Lab Results 05/03/20 05/03/20 05/03/20 Range/Units 08:24 08:24 08:24 WBC 5.68 (4.8-10.8) K/uL RBC 4.98 (4.7-6.1) M/uL Hgb 16.1 (14.0-18.0) g/dL Hct 47.0 (42-52) % MCV 94.4 (80-100) fL MCH 32.3 (25-34) pg MCHC 34.3 (32-36) g/dL RDW Std Deviation 44.5 (36.4-46.3) fL RDW Coeff of Chava 13.0 (11.5-14.5) % Plt Count 153 (130-400) K/uL MPV 13.0 H (7.4-10.4) fL Immature Gran % (Auto) 0.2 % Neut % (Auto) 49.8 % Lymph % (Auto) 25.4 % Early % (Auto) 12.1 % Eos % (Auto) 11.8 % Baso % (Auto) 0.7 % Neut # (Auto) 2.83 (1.4-6.5) K/uL Lymph # (Auto) 1.44 (1.2-3.4) K/uL Early # (Auto) 0.69 H (0.11-0.59) K/uL Eos # (Auto) 0.67 H (0-0.5) K/uL Baso # (Auto) 0.04 (0-0.2) K/uL Immature Gran # (Auto) 0.01 (0.00-0.02) K/uL PT 11.1 (9.0-12.0) Seconds INR 1.1 (0.9-1.1) APTT 27.9 (21.0-31.0) Seconds PTT Ratio 1.0 D-Dimer (0-500) ug/L FEU Sodium 142 (136-145) mmol/L Potassium 4.1 (3.5-5.1) mmol/L Chloride 108 H (98-107) mmol/L Carbon Dioxide 28 (21-32) mmol/L Anion Gap 6.0 (3-11) BUN 10 (7-18) mg/dl Creatinine 1.08 (0.6-1.4) mg/dl Est Cr Clr Drug Dosing Not Reportable Est GFR ( Amer) 84.8 Est GFR (Non-Af Amer) 73.2 BUN/Creatinine Ratio 9.4 L (10-20) Glucose 108 H (70-99) mg/dl Lactate (0.4-2.0) mmol/L Calcium 9.0 (8.5-10.1) mg/dl Magnesium 2.3 (1.8-2.4) mg/dl Total Bilirubin 0.7 (0.2-1) mg/dl AST 62 H (15-37) U/L ALT 94 H (12-78) U/L Alkaline Phosphatase 70 (45-117) U/L Troponin I < 0.015 (0-0.045) ng/ml NT-Pro-B Natriuret Pep (0-900) pg/ml Total Protein 6.7 (6.4-8.2) gm/dl Albumin 3.6 (3.4-5.0) gm/dl Globulin 3.1 (2.5-4.0) gm/dl Albumin/Globulin Ratio 1.2 (0.9-2) Procalcitonin (0-0.5) ng/ml COVID-19 Eval Order SARS-CoV-2, RNA, NAAT (NEGATIVE) 05/03/20 05/03/20 05/03/20 Range/Units 08:24 08:28 08:28 WBC (4.8-10.8) K/uL RBC (4.7-6.1) M/uL Hgb (14.0-18.0) g/dL Hct (42-52) % MCV (80-100) fL MCH (25-34) pg MCHC (32-36) g/dL RDW Std Deviation (36.4-46.3) fL RDW Coeff of Chava (11.5-14.5) % Plt Count (130-400) K/uL MPV (7.4-10.4) fL Immature Gran % (Auto) % Neut % (Auto) % Lymph % (Auto) % Early % (Auto) % Eos % (Auto) % Baso % (Auto) % Neut # (Auto) (1.4-6.5) K/uL Lymph # (Auto) (1.2-3.4) K/uL Early # (Auto) (0.11-0.59) K/uL Eos # (Auto) (0-0.5) K/uL Baso # (Auto) (0-0.2) K/uL Immature Gran # (Auto) (0.00-0.02) K/uL PT (9.0-12.0) Seconds INR (0.9-1.1) APTT (21.0-31.0) Seconds PTT Ratio D-Dimer 680 H* (0-500) ug/L FEU Sodium (136-145) mmol/L Potassium (3.5-5.1) mmol/L Chloride (98-107) mmol/L Carbon Dioxide (21-32) mmol/L Anion Gap (3-11) BUN (7-18) mg/dl Creatinine (0.6-1.4) mg/dl Est Cr Clr Drug Dosing Est GFR ( Amer) Est GFR (Non-Af Amer) BUN/Creatinine Ratio (10-20) Glucose (70-99) mg/dl Lactate 1.4 (0.4-2.0) mmol/L Calcium (8.5-10.1) mg/dl Magnesium (1.8-2.4) mg/dl Total Bilirubin (0.2-1) mg/dl AST (15-37) U/L ALT (12-78) U/L Alkaline Phosphatase (45-117) U/L Troponin I (0-0.045) ng/ml NT-Pro-B Natriuret Pep 414 (0-900) pg/ml Total Protein (6.4-8.2) gm/dl Albumin (3.4-5.0) gm/dl Globulin (2.5-4.0) gm/dl Albumin/Globulin Ratio (0.9-2) Procalcitonin (0-0.5) ng/ml COVID-19 Eval Order SARS-CoV-2, RNA, NAAT (NEGATIVE) 05/03/20 05/03/20 05/03/20 Range/Units 08:28 09:00 09:00 WBC (4.8-10.8) K/uL RBC (4.7-6.1) M/uL Hgb (14.0-18.0) g/dL Hct (42-52) % MCV (80-100) fL MCH (25-34) pg MCHC (32-36) g/dL RDW Std Deviation (36.4-46.3) fL RDW Coeff of Chava (11.5-14.5) % Plt Count (130-400) K/uL MPV (7.4-10.4) fL Immature Gran % (Auto) % Neut % (Auto) % Lymph % (Auto) % Early % (Auto) % Eos % (Auto) % Baso % (Auto) % Neut # (Auto) (1.4-6.5) K/uL Lymph # (Auto) (1.2-3.4) K/uL Early # (Auto) (0.11-0.59) K/uL Eos # (Auto) (0-0.5) K/uL Baso # (Auto) (0-0.2) K/uL Immature Gran # (Auto) (0.00-0.02) K/uL PT (9.0-12.0) Seconds INR (0.9-1.1) APTT (21.0-31.0) Seconds PTT Ratio D-Dimer (0-500) ug/L FEU Sodium (136-145) mmol/L Potassium (3.5-5.1) mmol/L Chloride (98-107) mmol/L Carbon Dioxide (21-32) mmol/L Anion Gap (3-11) BUN (7-18) mg/dl Creatinine (0.6-1.4) mg/dl Est Cr Clr Drug Dosing Est GFR ( Amer) Est GFR (Non-Af Amer) BUN/Creatinine Ratio (10-20) Glucose (70-99) mg/dl Lactate (0.4-2.0) mmol/L Calcium (8.5-10.1) mg/dl Magnesium (1.8-2.4) mg/dl Total Bilirubin (0.2-1) mg/dl AST (15-37) U/L ALT (12-78) U/L Alkaline Phosphatase (45-117) U/L Troponin I (0-0.045) ng/ml NT-Pro-B Natriuret Pep (0-900) pg/ml Total Protein (6.4-8.2) gm/dl Albumin (3.4-5.0) gm/dl Globulin (2.5-4.0) gm/dl Albumin/Globulin Ratio (0.9-2) Procalcitonin < 0.05 (0-0.5) ng/ml COVID-19 Eval [facility] SARS-[facility]-2, RNA, NAAT NEGATIVE (NEGATIVE) Administered Medications Enoxaparin Sodium (Enoxaparin Inj 40 Mg/0.4 Ml Syr) 40 mg SQ Q24H [facility] Stop: 06/02/20 13:59 Last Admin: 05/03/20 14:08 Dose: 40 mg Documented by: [id number] Ceftriaxone Sodium 2,000 mg/ (Dextrose) 70 mls @ 100 mls/hr IV Q24H NICOL; Protocol Stop: 05/10/20 15:59 Last Infusion: 05/03/20 14:50 Dose: 0 mls/hr Documented by: [id number] Admin: 05/03/20 14:07 Dose: 100 mls/hr Documented by: [id number] Azithromycin 500 mg/ Dextrose 255 mls @ 125 mls/hr IV Q24H [facility] Stop: 05/10/20 13:59 Last Infusion: 05/03/20 14:44 Dose: 0 mls/hr Documented by: [id number] Admin: 05/03/20 14:08 Dose: 125 mls/hr Documented by: [id number] Ipratropium [place] (Ipratropium [place] Neb Soln 0.02% 2.5 Ml Vial) 0.5 mg INH Q6R [facility] Stop: 06/02/20 13:18 Last Admin: 05/04/20 01:09 Dose: Not Given Documented by: [id number] Admin: 05/03/20 19:27 Dose: 0.5 mg Documented by: [id number] Admin: 05/03/20 14:17 Dose: 0.5 mg Documented by: [id number] Levalbuterol HCl (Levalbuterol 1.25mg/0.5ml Neb) 1.25 mg INH Q6R [facility] Stop: 06/02/20 13:18 Last Admin: 05/04/20 01:09 Dose: Not Given Documented by: [id number] Admin: 05/03/20 19:27 Dose: 1.25 mg Documented by: [id number] Admin: 05/03/20 14:17 Dose: 1.25 mg Documented by: [id number] Metoprolol Tartrate (Metoprolol Tartrate 25 Mg Tab) 12.5 mg PO BID [facility] Stop: 06/02/20 13:18 Last Admin: 05/03/20 21:00 Dose: 12.5 mg Documented by: [id number] Admin: 05/03/20 14:08 Dose: 12.5 mg Documented by: [id number] Prednisone (Prednisone 20 Mg Tab) 40 mg PO Q24H [facility] Stop: 05/07/20 14:01 Last Admin: 05/03/20 14:08 Dose: 40 mg Documented by: [id number] Discontinued Medications Adenosine (Adenosine Iv Soln 3 Mg/Ml 2 Ml Vial) Confirm Administered Dose 6 mg IV .STK-MED ONE Stop: 05/03/20 06:25 Last Admin: 05/03/20 06:57 Dose: 6 mg Documented by: [id number] Adenosine (Adenosine Iv Soln 3 Mg/Ml 2 Ml Vial) 6 mg IV NOW STA Stop: 05/03/20 06:53 Last Admin: 05/03/20 14:45 Dose: Not Given Documented by: [id number] Adenosine (Adenosine Iv Soln 3 Mg/Ml 2 Ml Vial) 12 mg IV NOW STA Stop: 05/03/20 06:53 Last Admin: 05/03/20 14:45 Dose: Not Given Documented by: [id number] Albuterol (Albut/Ipratrop 3mg/0.5mg Neb 3 Ml Vial) 3 ml INH NOW STA Stop: 05/03/20 06:53 Last Admin: 05/03/20 07:27 Dose: 3 ml Documented by: [id number] Cefepime HCl (Maxipime) 2,000 mg in 20 mls @ 5 mls/min IV NOW STA; Protocol Stop: 05/03/20 07:07 Last Admin: 05/03/20 08:51 Dose: 5 mls/min Documented by: [id number] Ioversol (Optiray 320 125ml) 120 ml IV ONCE ONE Stop: 05/03/20 17:31 Last Admin: 05/03/20 17:30 Dose: 120 ml Documented by: [id number] Metoprolol Tartrate (Metoprolol Tartrate 1 Mg/Ml Vial) Confirm Administered Dose 5 mg IV .STK-MED ONE Stop: 05/03/20 06:52 Last Admin: 05/03/20 06:58 Dose: Not Given Documented by: [id number] Metoprolol Tartrate (Metoprolol Tartrate 1 Mg/Ml Vial) 5 mg IV NOW STA Stop: 05/03/20 06:54 Last Admin: 05/03/20 06:57 Dose: 5 mg Documented by: [id number] Discharge Plan Visit Data Chief Complaint: Shortness of Breath/Dyspnea Stated Complaint: SOB,ASTHMA - COVID + 4 WKS AGO ED Provider: Cindy Carreon Discharge Problem: SVT (supraventricular tachycardia), COVID-19, Asthma exacerbation Patient Disposition: Admitted As Inpatient Discharge Instructions Interventions: ED Discharge Assessment Last Done: 05/03/20 11:21 Discharge Problem: Asthma exacerbation Qualifiers: Asthma severity: moderate Asthma persistence: persistent Qualified Code(s): J45.41 - Moderate persistent asthma with (acute) exacerbation
[2020-05-03 10:03] LABS: Alanine Aminotransferase 94 U/L (12-78); Albumin Globulin Ratio 1.2 (0.9-2); Albumin Level 3.6 gm/dl (3.4-5.0); Alkaline Phosphatase 70 U/L (45-117); Aspartate Aminotransferase 62 U/L (15-37); BUN Creatinine Ratio 9.4 (10-20); Bilirubin,Total 0.7 mg/dl (0.2-1); Blood Urea Nitrogen 10 mg/dl (7-18); Carbon Dioxide 28 mmol/L (21-32); Chloride 108 mmol/L (98-107); Est GFR (African American) 84.8; Est GFR (Non-African American) 73.2; Globulin 3.1 gm/dl (2.5-4.0); Glucose 108 mg/dl (70-99); Magnesium 2.3 mg/dl (1.8-2.4); Potassium 4.1 mmol/L (3.5-5.1); Sodium 142 mmol/L (136-145); Total Protein 6.7 gm/dl (6.4-8.2); Troponin I < 0.015 ng/ml (0-0.045)
[2020-05-03 10:50] LABS: D Dimer 680 ug/L FEU (0-500)
[2020-05-03] MEDS ORDERED: NITROGLYCERIN SL 0.4 MG/TAB TAB SL PRN (13:19)
[2020-05-03] MEDS ORDERED: XOPENEX/ATROVENT 1.25mg/0.5MG NEB COMBO NEB SCH (13:19)
[2020-05-03] MEDS ORDERED: ONDANSETRON INJ 2 MG/ML 2 ML VIAL IV PRN (13:19)
[2020-05-03] MEDS ORDERED: ACETAMINOPHEN 325 MG TAB PO PRN (13:19)
[2020-05-03] MEDS: cefTRIAXone SODIUM 2,000 MG in DEXTROSE 5% 50 ML IV SCH (14:07)
[2020-05-03] MEDS: predniSONE 20 MG TAB PO SCH (14:08)
[2020-05-03] MEDS: METOPROLOL TARTRATE 25 MG TAB PO SCH ×2 (14:08→21:00)
[2020-05-03] MEDS: AZITHROMYCIN 500 MG in DEXTROSE 5% 250 ML IV SCH (14:08)
[2020-05-03] MEDS: ENOXAPARIN INJ 40 MG/0.4 ML SYR SQ SCH (14:08)
[2020-05-03] MEDS: IPRATROPIUM BROMIDE NEB SOLN 0.02% 2.5 ML VIAL INH SCH ×2 (14:17→19:27)
[2020-05-03] MEDS: LEVALBUTEROL 1.25MG/0.5ML NEB INH SCH ×2 (14:17→19:27)
--- NOTE | 2020-05-03 15:57 | History & Physical Report ---
Date of Service May 03, 2020 Assessment & Plan (1) SVT (supraventricular tachycardia): -Admit to telemetry -Patient presenting from home with reports of worsening shortness of breath x1 week -In the ED, to be in SVT in the 180s. Received adenosine however through left foot IV due to poor access (? Effectiveness) and metoprolol 5 mg IV. Heart rate currently in the 90s in NSR. -Start metoprolol tartrate 12.5 twice daily -Serial cardiac enzymes -Echo -D-dimer checked and elevated -check CTA chest (2) Pneumonia: (3) Asthma exacerbation: -Wheezing on exam, saturating well on room air -CXR shows questionable left basilar pneumonia -Per patient, history of COVID-19 at the end of March. COVID-19 testing negative. -Start empiric IV ceftriaxone and IV azithromycin -Prednisone 40 mg p.o. x 5 days -Scheduled nebs (4) DVT prophylaxis: -SQ Lovenox Admission and Anticipated Discharge Date Admission Date: May 03, 2020 History of Present Illness Chief Complaint: Shortness of breath Primary Care Provider: Rene Sosa DO 64-year-old male with PMH asthma and other problems listed below who presents the ED for evaluation of shortness of breath. Patient reports being diagnosed with COVID-19 at the end of March. Reports he was feeling better from the illness. Over the past 1 week, patient reports worsening shortness of breath. He has had a nonproductive cough. No fevers or chills. Patient denies chest pain palpitations. No lightheadedness, dizziness, diaphoresis, syncopal events. Denies abdominal pain, nausea, vomiting, diarrhea. Denies urinary symptoms. In the ED, patient was found to be in SVT in the 180s. IV access was difficult to establish. Patient received adenosine through a left foot IV. He then received metoprolol 5 mg IV. Patient is now in sinus rhythm in the 90s. D- dimer elevated, other labs unremarkable. CXR shows a possible left basilar pneumonia. Patient was also given an albuterol treatment and cefepime. Allergies Allergy/AdvReac Type Severity Reaction Status Date / Time rofecoxib Allergy Mild RASH Verified 05/03/20 06:37 bee venom protein (honey bee) Allergy Unknown SWELLING Verified 05/03/20 06:37 Home Medications Medication Instructions Recorded Confirmed Type albuterol sulfate 2 puff INHALATION Q4H PRN 05/03/20 05/03/20 History tamsulosin 0.4 mg PO DAILY 05/03/20 05/03/20 History tiotropium bromide [Spiriva with 1 cap INHALATION DAILY 05/03/20 05/03/20 His tory HandiHaler] Past Med/Surg History Medical History Asthma BPH (benign prostatic hyperplasia) History of ESBL E. coli infection "urine 11/21/16" History of renal calculi "per US 11/23/16" Surgical History Status post hernia repair Family History Other Adopted Social History Smoking Status: Former smoker Second Hand Exposure: No; Do You Dip or Chew Tobacco: No; Tobacco Cessation Education Requested by Patient: No Hx Alcohol Use: Yes Hx Substance Use: Yes Last Used Substance: Unknown Substance Use Type Other:: IV DRUG USE Preferred Language: Barbadian Communication Ability: Effective Workers Compensation Attorney Required: No Beliefs That Will Affect Care: None and Spiritual Spiritual Healthcare Practices: Hindu Current Living Situation: Alone Other Information That Helps Us Care for You: No Feels Safe at Home: Yes Safety Concerns: Feels Safe At This Time Assistive Devices: None Review of Systems Review of Systems: ROS per HPI, all other systems reviewed and negative Physical Exam Constitutional: WD/WN, vitals as above Eyes: PERRL, conjunctivae normal, anicteric sclerae ENMT: external ear and nose normal, oropharynx normal Respiratory: normal respiratory effort; no respiratory distress Auscultation: + diminished lung sounds, + rhonchi (Bilateral) and + wheezes (Expiratory, bilateral) Cardiovascular: Rate/Rhythm: regular rate and regular rhythm Vessels: normal peripheral pulses Extremities: no edema Gastrointestinal (Abdomen): normal bowel sounds, soft, nontender, no hepatosplenomegaly Musculoskeletal: no cyanosis or clubbing, extremities motor strength 5/5 Skin: no rashes, warm and dry Neurologic: PERRL, EOMI, accommodation nl, no face palsy, no dysarthria Psychiatric: A+Ox3, euthymic affect Results & Data Results & Data ([facility]) Vital Signs (Past 12 Hours) Vital Signs Temp Pulse Pulse Resp BP BP Pulse Ox 05/03/20 15:06 36.7 C 97 H 21 128/86 95 05/03/20 14:18 105 H 20 95 05/03/20 13:21 36.7 C 103 H 20 139/78 94 05/03/20 13:19 36.7 C 103 H 20 139/78 94 05/03/20 11:21 97 H 24 115/75 94 05/03/20 11:20 99 H 26 H 92 05/03/20 11:19 101 H 25 H 115/75 94 05/03/20 11:10 93 H 20 91 05/03/20 11:01 97 H 22 92 05/03/20 11:00 96 H 21 132/86 93 05/03/20 10:50 95 H 21 94 05/03/20 10:40 98 H 27 H 95 05/03/20 10:34 99 H 98 H 19 128/91 128/91 93 05/03/20 10:31 125/92 94 05/03/20 10:20 93 05/03/20 10:10 99 H 13 93 05/03/20 10:01 99 H 19 110/84 94 05/03/20 10:00 99 H 21 84 L 05/03/20 09:50 98 H 21 94 05/03/20 09:44 119 H 05/03/20 09:40 102 H 20 93 05/03/20 09:31 95 H 20 92 05/03/20 09:30 97 H 95 H 22 139/79 139/79 92 05/03/20 09:20 96 H 19 92 05/03/20 09:10 94 H 21 94 05/03/20 09:01 94 H 24 110/80 94 05/03/20 09:00 97 H 20 90 05/03/20 08:51 87 19 93 05/03/20 08:50 91 H 92 H 21 121/77 121/77 94 05/03/20 08:40 91 H 22 94 05/03/20 08:30 90 22 93 05/03/20 08:20 84 21 85 L 05/03/20 08:10 83 24 94 01/16/21 08:00 86 21 94 05/03/20 07:50 92 05/03/20 07:49 92 H 20 132/89 93 05/03/20 07:40 88 94 05/03/20 07:31 100 05/03/20 07:30 132/89 95 05/03/20 07:28 85 18 94 05/03/20 07:20 94 H 21 93 05/03/20 07:10 83 19 94 05/03/20 07:06 82 94 05/03/20 07:01 86 24 122/84 95 05/03/20 07:00 81 21 94 05/03/20 06:57 189 H 141/91 H 05/03/20 06:50 104 H 24 96 05/03/20 06:40 181 H 20 96 05/03/20 06:30 182 H 25 H 96 05/03/20 06:21 167 H 12 96 05/03/20 06:17 168 H 16 141/91 H 96 05/03/20 06:04 36.6 C 91 H 28 H 112/57 L 96 Laboratory Results Short CBC 05/03/20 Range/Units 08:24 WBC 5.68 (4.8-10.8) K/uL Hgb 16.1 (14.0-18.0) g/dL Hct 47.0 (42-52) % Plt Count 153 (130-400) K/uL BMP 05/03/20 08:24 Sodium 142 Potassium 4.1 Chloride 108 H Carbon Dioxide 28 BUN 10 Creatinine 1.08 Glucose 108 H Calcium 9.0 Cardiac Enzymes 05/03/20 05/03/20 Range/Units 08:24 14:12 Troponin I < 0.015 < 0.015 (0-0.045) ng/ml Liver Function 05/03/20 Range/Units 08:24 Total Bilirubin 0.7 (0.2-1) mg/dl AST 62 H (15-37) U/L ALT 94 H (12-78) U/L Alkaline Phosphatase 70 (45-117) U/L Albumin 3.6 (3.4-5.0) gm/dl Diagnostic Findings CXR IMPRESSION: 1. Minimal left basilar opacity which may reflect an infectious process or atelectasis. Radiographic follow-up is recommended. 2. Increase in moderate elevation of the right hemidiaphragm. Code Status & VTE Plan VTE Prophylaxis Plan VTE Prophylaxis will be ordered: Yes Supervising Physician Co-Signing Physician Notes Supraventricular tachycardia Possible COPD/asthma exhibition Diagnosis of COVID-apr 09 History of drug abuse History of erectile dysfunction History of BPH Admit under telemetry. Patient presents with worsening shortness of breath over the last few days. Ports over the last 2 days he has been progressively short of breath along with diaphoresis and chills. Denies any fever denies any cough, sore throat or runny nose. Denies any chest pain but does report palpitations. Denies any nausea or vomiting. Denies any abdominal pain, diarrhea or dysuria. The ED patient was found to be in SVT. Difficult IV access. The access was obtained in the foot. Was given dose of adenosine. Patient converted. White count is within normal limit. Patient is afebrile. BMP is mostly unremarkable. Cardiac enzymes are not concerning. D-dimer was 680. CXR revaled Minimal left basilar opacity which may reflect an infectious process or atelectasis. Will obtain procalcitonin. Start patient on ceftriaxone azithromycin. Continue with bronchodilators and prednisone 40 mg daily. Patient is rate controlled. Start patient on low-dose beta-aislinn. Cardiology has been consulted. Obtain transthoracic echo. Will obtain CTA to rule pulmonary embolism. I performed a history and physical examination of the patient on 05/03/20. I have discussed the patient's management with the advanced practitioner. Please refer to the physician clinical trials assistant's note for the documented findings and plan of care. (1) Asthma exacerbation Asthma persistence: persistent Asthma severity: moderate Qualified Code(s): J45.41 - Moderate persistent asthma with (acute) exacerbation
[2020-05-03] MEDS ORDERED: OPTIRAY 320 125ml IV ONE (17:30)
--- NOTE | 2020-05-03 18:09 | CT Scan Report ---
CT ANGIOGRAPHY OF THE CHEST, PULMONARY EMBOLUS PROTOCOL CLINICAL HISTORY: Shortness of breath. Evaluate for pulmonary embolus. COMPARISON STUDY: Chest CT March 27, 2015. Chest radiograph May 03, 2020 TECHNIQUE: Following IV administration of 120 mL of Optiray-320, helical axial images of the chest we re obtained utilizing the pulmonary embolus protocol. Maximal intensity projections and sagittal and coronal reformats were viewed on an independent 3D workstation. IV contrast was administered withou t complication. Automated exposure control was utilized for the study. A dose lowering technique wa s utilized adhering to the principles of ALARA. CT DOSE: 839.72 mGy.cm FINDINGS: No pulmonary emboli are identified. There is no thoracic aortic dissection. Size of the he art is normal. No enlarged thoracic lymph nodes are noted. Right lower lobe opacity favors atelectasi s. There is moderate elevation of the right hemidiaphragm. Note is made of mild groundglass opacities within the left lung. No pneumothorax or pleural effusion is noted. Central airways are patent. Shayne ed hepatic steatosis is noted. IMPRESSION: 1. No pulmonary emboli identified. 2. Minimal groundglass opacities within the left lung which favor an infectious process. 3. Moderate elevation of the right hemidiaphragm. 4. Marked hepatic steatosis. ACT 112: Negative or not required by law. Electronically signed by: Jaylen Coronel M.D. 05/03/2020 6:07 PM
--- NOTE | 2020-05-03 22:14 | Electrocardiogram Report ---
Test Reason : Blood Pressure : / mmHG Vent. Rate : 180 BPM Atrial Rate : 174 BPM P-R Int : 000 ms QRS Dur : 086 ms QT Int : 274 ms P-R-T Axes : 000 016 034 degrees QTc Int : 474 ms Supraventricular tachycardia Possible Inferior infarct , age undetermined Abnormal ECG When compared with ECG of 23-NOV-2016 10:21, Vent. rate has increased BY 104 BPM Borderline criteria for Inferior infarct are now Present Supraventricular tachycardia has replaced Sinus rhythm Confirmed by Homer Reynolds ([id number]) on 05/03/2020 10:14:09 PM Referred By: ED Confirmed By:Homer Reynolds
--- NOTE | 2020-05-03 22:19 | Electrocardiogram Report ---
Test Reason : Blood Pressure : / mmHG Vent. Rate : 080 BPM Atrial Rate : 080 BPM P-R Int : 154 ms QRS Dur : 090 ms QT Int : 344 ms P-R-T Axes : 044 018 049 degrees QTc Int : 396 ms Sinus rhythm with Premature atrial complexes with Aberrant conduction Inferior infarct (cited on or before 03-MAY-2020) Abnormal ECG When compared with ECG of 03-MAY-2020 06:21, Sinus rhythm has replaced Supraventricular tachycardia Vent. rate has decreased BY 100 BPM Confirmed by Homer Reynolds ([id number]) on 05/03/2020 10:18:54 PM Referred By: Confirmed By:Homer Reynolds
[2020-05-04] MEDS: LEVALBUTEROL 1.25MG/0.5ML NEB INH SCH ×4 (01:09→19:18)
[2020-05-04] MEDS: IPRATROPIUM BROMIDE NEB SOLN 0.02% 2.5 ML VIAL INH SCH ×4 (01:09→19:18)
[2020-05-04] MEDS: METOPROLOL TARTRATE 25 MG TAB PO SCH ×2 (08:30→21:00)
[2020-05-04] MEDS: TAMSULOSIN HCL 0.4 MG CAP PO SCH (08:31)
--- NOTE | 2020-05-04 10:54 | Cardiology Consultation ---
Date of Consultation May 04, 2020 Assessment & Plan (1) SVT (supraventricular tachycardia): (2) Asthma exacerbation: (3) COVID-19: The patient has an echocardiogram scheduled which I will review when it is available however, I do not believe that it should hold up the patient's hospita l discharge. He can return home on metoprolol 25 mg p.o. twice daily along with aspirin 81 mg daily. He should have follow-up with us after discharge. History of Present Illness Attending Physician: Brody Gan MD History of Present Illness This is a 64-year-old male patient with no prior history of heart disease. At the end of March he had Covid. The patient states he recovered slowly but was doing better. On the day of admission he had a coughing spell which was somewhat severe, creating some anxiety. He then felt his heart racing. He presented to the emergency department where he was found to be in a narrow complex tachycardia. Patient was given IV metoprolol and soon after converted to normal sinus rhythm where he has remained throughout his hospital stay. He has no ongoing complaints. Allergies Allergy/AdvReac Type Severity Reaction Status Date / Time rofecoxib Allergy Mild RASH Verified 05/03/20 06:37 bee venom protein (honey bee) Allergy Unknown SWELLING Verified 05/03/20 06:37 Home Medications Medication Instructions Recorded Confirmed Type albuterol sulfate 2 puff INHALATION Q4H PRN 05/03/20 05/03/20 History tamsulosin 0.4 mg PO DAILY 05/03/20 05/03/20 History tiotropium bromide [Spiriva with 1 cap INHALATION DAILY 05/03/20 05/03/20 History HandiHaler] Patient History Medical History Asthma BPH (benign prostatic hyperplasia) History of ESBL E. coli infection "urine 11/21/16" History of renal calculi "per US 11/23/16" Surgical History Status post hernia repair Family History Other Adopted Social History Smoking Status: Former smoker Second Hand Exposure: No; Do You Dip or Chew Tobacco: No; Tobacco Cessation Education Requested by Patient: No Hx Alcohol Use: Yes Hx Substance Use: Yes Last Used Substance: Unknown Substance Use Type Other:: IV DRUG USE Preferred Language: Swazi Communication Ability: Effective Test Department Helper Required: No Beliefs That Will Affect Care: None and Spiritual Spiritual Healthcare Practices: Catholic Current Living Situation: Alone Other Information That Helps Us Care for You: No Feels Safe at Home: Yes Safety Concerns: Feels Safe At This Time Assistive Devices: None Review of Systems Review of Systems: All systems reviewed & are unremarkable except as noted in HPI & below Nothing additional to add Physical Exam Physical Exam: General: no acute distress and stated age Head: normocephalic, no masses, lesions, tenderness or abnormalities Eyes: conjunctiva are pink and non-injected, sclera clear Neck: supple, no adenopathy, no bruits, normal jugular venous pulse, no hepatojugular reflux Chest: normal shape and normal respiratory effort Lungs: clear to auscultation and percussion Cardiac Exam: - regular rate & rhythm, no murmurs gallops or rubs - normal S1, normal S2 Pulses: 2(+) throughout Abdomen: abdomen soft, non-tender, no abnormal masses and no hepatosplenomegaly Musculoskeletal: no gait disturbance, no joint inflammation, no deforming arthritis Extremities: no edema and no cyanosis Neuro: grossly normal exam Results & Data ([facility]) Vital Signs (Past 12 Hours) Vital Signs Temp Pulse Resp BP Pulse Ox 05/04/20 07:41 37.0 C 76 16 132/64 95 05/04/20 07:35 71 16 95 05/04/20 03:45 36.7 C 80 18 125/78 94 05/03/20 23:39 36.8 C 87 19 108/68 95 Laboratory Results Laboratory Results - last 24 hr 05/03/20 05/03/20 05/03/20 08:28 08:28 14:12 Troponin I < 0.015 NT-Pro-B Natriuret Pep 414 Procalcitonin < 0.05 05/03/20 20:30 Troponin I < 0.015 NT-Pro-B Natriuret Pep Procalcitonin Medications Administered Current Inpatient Medications Acetaminophen (Acetaminophen 325 Mg Tab) 650 mg PO Q4H PRN PRN Reason: Pain or Fever Stop: 06/02/20 13:18 Enoxaparin Sodium (Enoxaparin Inj 40 Mg/0.4 Ml Syr) 40 mg SQ Q24H [facility] Stop: 06/02/20 13:59 Last Admin: 05/03/20 14:08 Dose: 40 mg Documented by: Ceftriaxone Sodium 2,000 mg/ (Dextrose) 70 mls @ 100 mls/hr IV Q24H [facility]; Protocol Stop: 05/10/20 15:59 Last Infusion: 05/03/20 14:50 Dose: Infused Documented by: Azithromycin 500 mg/ Dextrose 255 mls @ 125 mls/hr IV Q24H [facility] Stop: 05/10/20 13:59 Last Infusion: 05/03/20 14:44 Dose: Infused Documented by: Ipratropium [place] (Ipratropium [place] Neb Soln 0.02% 2.5 Ml Vial) 0.5 mg INH Q6R [facility] Stop: 06/02/20 13:18 Last Admin: 05/04/20 07:33 Dose: 0.5 mg Documented by: Levalbuterol HCl (Levalbuterol 1.25mg/0.5ml Neb) 1.25 mg INH Q6R [facility] Stop: 06/02/20 13:18 Last Admin: 05/04/20 07:33 Dose: 1.25 mg Documented by: Metoprolol Tartrate (Metoprolol Tartrate 25 Mg Tab) 25 mg PO BID [facility] Stop: 06/03/20 20:59 Metoprolol Tartrate (Metoprolol Tartrate 25 Mg Tab) 12.5 mg PO NOW ONE Stop: 05/04/20 11:01 Nitroglycerin (Nitroglycerin Sl 0.4 Mg/Tab Tab) 0.4 mg SL UD PRN PRN Reason: Chest Pain Stop: 06/02/20 13:18 Ondansetron HCl (Ondansetron Inj 2 Mg/Ml 2 Ml Vial) 4 mg IV Q6H PRN PRN Reason: Nausea Stop: 06/02/20 13:18 Prednisone (Prednisone 20 Mg Tab) 40 mg PO Q24H [facility] Stop: 05/07/20 14:01 Last Admin: 05/03/20 14:08 Dose: 40 mg Documented by: Tamsulosin HCl (Tamsulosin Hcl 0.4 Mg Cap) 0.4 mg PO DAILY [facility] Stop: 06/03/20 08:59 Last Admin: 05/04/20 08:31 Dose: 0.4 mg Documented by: (1) Asthma exacerbation Asthma persistence: persistent Asthma severity: moderate Qualified Code(s): J45.41 - Moderate persistent asthma with (acute) exacerbation
[2020-05-04] MEDS ORDERED: METOPROLOL TARTRATE 25 MG TAB PO ONE (11:00)
--- NOTE | 2020-05-04 13:12 | Hospitalist Progress Note ---
Date of Service May 04, 2020 Assessment & Plan (1) SVT (supraventricular tachycardia): Currently remains in sinus rhythm. Rate is controlled. Continue with low-dose beta-aislinn. Transthoracic echo is pending. D-dimer was around 680. CTA is negative. Awaiting cardiology input. (2) Pneumonia: (3) Asthma exacerbation: Today patient is on room air. Reports he feels better. Wheezing is significantly improved. Chest x-ray revealed left basilar pneumonia. White count is within normal limit. Patient is afebrile. Procalcitonin is not concerning. Continue with ceftriaxone azithromycin for now. Continue with bronchodilators and prednisone 40 mg daily. (4) DVT prophylaxis: -SQ Lovenox Admission and Anticipated Discharge Date Admission Date: May 03, 2020 Subjective Patient is doing okay this morning. He reports he feels better does have intermittent cough. Hemodynamically doing fine. Currently remains on room air. Rate is currently controlled. Currently remains in sinus rhythm. Review of Systems Review of Systems: All systems reviewed & are unremarkable except as noted in HPI & below Physical Exam Physical Exam: General: A&Ox3 HENT: NCAT, MMM, EOMI Eyes: PERRLA Neck: Supple, normal range of motion CVS: normal rate and rhythm Resp: b/l wheezing is significantly improved Abdomen: Soft, nondistended, nontender Extremities: Absence of any edema Neuro: No gross focal deficits appreciated Skin: warm and dry MSK: normal ROM, no joint swelling/erythema Results & Data Results & Data ([facility]) Vital Signs (Past 12 Hours) Vital Signs Temp Pulse Pulse Resp BP Pulse Ox 05/04/20 13:01 70 16 93 05/04/20 11:06 85 05/04/20 07:41 37.0 C 76 16 132/64 95 05/04/20 07:35 71 16 95 05/04/20 03:45 36.7 C 80 18 125/78 94 (1) Asthma exacerbation Asthma persistence: persistent Asthma severity: moderate Qualified Code(s): J45.41 - Moderate persistent asthma with (acute) exacerbation
[2020-05-04] MEDS: ENOXAPARIN INJ 40 MG/0.4 ML SYR SQ SCH (14:53)
[2020-05-04] MEDS: ASPIRIN 81 MG CHEW PO SCH (14:53)
[2020-05-04] MEDS: AZITHROMYCIN 500 MG in DEXTROSE 5% 250 ML IV SCH (14:54)
[2020-05-04] MEDS: predniSONE 20 MG TAB PO SCH (14:54)
[2020-05-04] MEDS: cefTRIAXone SODIUM 2,000 MG in DEXTROSE 5% 50 ML IV SCH (16:15)
[2020-05-05] MEDS: IPRATROPIUM BROMIDE NEB SOLN 0.02% 2.5 ML VIAL INH SCH ×2 (00:39→07:03)
[2020-05-05] MEDS: LEVALBUTEROL 1.25MG/0.5ML NEB INH SCH ×2 (00:40→07:03)
[2020-05-05] MEDS: METOPROLOL TARTRATE 25 MG TAB PO SCH (08:28)
[2020-05-05] MEDS: ASPIRIN 81 MG CHEW PO SCH (08:59)
[2020-05-05] MEDS: TAMSULOSIN HCL 0.4 MG CAP PO SCH (08:59)
--- NOTE | 2020-05-05 10:54 | Discharge Summary ---
Date of Service May 05, 2020 Admission HPI Per Admitting Provider 64-year-old male with PMH asthma and other problems listed below who presents the ED for evaluation of shortness of breath. Patient reports being diagnosed with COVID-19 at the end of March. Reports he was feeling better from the illness. Over the past 1 week, patient reports worsening shortness of breath. He has had a nonproductive cough. No fevers or chills. Patient denies chest pain palpitations. No lightheadedness, dizziness, diaphoresis, syncopal events. Denies abdominal pain, nausea, vomiting, diarrhea. Denies urinary symptoms. In the ED, patient was found to be in SVT in the 180s. IV access was difficult to establish. Patient received adenosine through a left foot IV. He then received metoprolol 5 mg IV. Patient is now in sinus rhythm in the 90s. D- dimer elevated, other labs unremarkable. CXR shows a possible left basilar pneumonia. Patient was also given an albuterol treatment and cefepime. Admission Exam Per Admitting Provider Constitutional: WD/WN, vitals as above Eyes: PERRL, conjunctivae normal, anicteric sclerae ENMT: external ear and nose normal, oropharynx normal Respiratory: normal respiratory effort; no respiratory distress Auscultation: + diminished lung sounds, + rhonchi (Bilateral) and + wheezes (Expiratory, bilateral) Cardiovascular: Rate/Rhythm: regular rate and regular rhythm Vessels: normal peripheral pulses Extremities: no edema Gastrointestinal (Abdomen): normal bowel sounds, soft, nontender, no hepatosplenomegaly Musculoskeletal: no cyanosis or clubbing, extremities motor strength 5/5 Skin: no rashes, warm and dry Neurologic: PERRL, EOMI, accommodation nl, no face palsy, no dysarthria Psychiatric: A+Ox3, euthymic affect Principal Diagnosis SVT Possible community-acquired pneumonia Asthma extubated Discharge Exam General: A&Ox3 HENT: NCAT, MMM, EOMI Eyes: PERRLA Neck: Supple, normal range of motion CVS: normal rate and rhythm Resp: b/l wheezing is significantly improved Abdomen: Soft, nondistended, nontender Extremities: Absence of any edema Neuro: No gross focal deficits appreciated Skin: warm and dry MSK: normal ROM, no joint swelling/erythema Discharge Data Allergies Allergy/AdvReac Type Severity Reaction Status Date / Time rofecoxib Allergy Mild RASH Verified 05/03/20 06:37 bee venom protein (honey bee) Allergy Unknown SWELLING Verified 05/03/20 06:37 Consultations 05/03/20 09:17 ED Decision to Admit Stat 05/03/20 13:19 Consult Cardiology Routine Ordered Studies 05/03/20 15:41 CT angio chest PE protocol Urgent Hospital Course (1) SVT (supraventricular tachycardia): Admission patient had an episode of SVT. Transthoracic echo was obtained which revealed a normal EF. Cardiology was consulted. Patient was discharged on beta-aislinn 25 mg twice daily. His cardiac enzymes were not concerning. Patient remained in normal rhythm prior to discharge. D-dimer was around 680. CTA is negative. Patient will need to follow-up with cardiology as an outpatient. (2) Pneumonia: (3) Asthma exacerbation: Patient was on room air. Prior to discharge he reported his symptoms are significantly improved. Patient was discharged on 3 more days of azithromycin and prednisone. Total Time Total Time Spent Total Time Spent (In Minutes): 35 Discharge Plan Discharge Items Patient Disposition: Home - Self-Care Reason For Visit: SVGT Discharge Diagnosis: SVT Asthma/CAP Activity: Resume your previous activity Non-emergency contact: Primary Care Provider Call non-emergency contact if: your symptoms worsen Follow-up/Referrals: Rene Sosa DO [Primary Care Provider] - (Date & Time 05/08/2020 11:00 AM Provider Obie Alcantara III, MD Department [facility], [place] PLEASE NOTE THAT THIS IS A TELEVIDEO APPOINTMENT. PLEASE FOLLOW THE INSTRUCTIONS PROVIDED IN AN EMAIL YOU WILL RECEIVE. IF YOU HAVE ANY QUESTIONS, PLEASE CALL ) Diet: Heart Healthy Addtl Attending Provider Instructions: Follow-up with your primary care physician in the next 3 to 5 days. An appointment has been requested. Follow-up with cardiology. An appointment has been requested. Start taking metoprolol 25 mg twice daily. Take azithromycin and prednisone for 3 more days. Stand-Alone Forms: My [employer], Smoking Cessation Medications and DC Order Prescriptions: New prednisone 20 mg Tablet 40 mg PO Q24H Qty: 6 RF: 0 aspirin 81 mg Tablet,Chewable 81 mg PO DAILY Qty: 30 RF: 0 metoprolol tartrate 25 mg Tablet 25 mg PO BID Qty: 60 RF: 0 azithromycin [Zithromax] 250 mg tablet 250 mg PO DAILY 3 Days Qty: 3 RF: 0 Continued tamsulosin 0.4 mg capsule 0.4 mg PO DAILY RF: 0 albuterol sulfate 90 mcg/actuation HFA aerosol inhaler 2 puff INHALATION Q4H PRN (Reason: Shortness Of Breath) RF: 0 Spiriva with HandiHaler 18 mcg capsule, w/inhalation device 1 cap INHALATION DAILY RF: 0 Discharge Orders: Discharge Order (Routine); Ordered 05/05/20 Ordered By: Brody Gan Admission Data Admit Date/Time: 05/03/20 10:06 Attending Provider: Brody Gan Admit Provider: Brody Gan Primary Care Provider: Rene Sosa Other Providers: Brody Gan ; Azael Butcher
== END 2020-05-05 11:52 | disposition home or self-care (01) | DRG 308 ==
LOC: ED 06:01 → 2S 10:06